=== PATIENT | female | born 1940 | race Caucasian/White ===

== ENCOUNTER 2017-08-06 13:02 | Outpatient (CLI) | payer MEDICARE, BC | END 2017-08-06 13:03 | disposition home or self-care (01) | LOC: BICMAMMO 13:02 | PROVIDERS: ATTEND Internal Medicine Geriatric Medicine | DX: Z12.31 Encounter for screening mammogram for malignant neoplasm of breast (principal); R92.1 Mammographic calcification found on diagnostic imaging of breast | CPT/HCPCS: 77063; 77067 ==

== ENCOUNTER 2019-04-12 12:54 | Outpatient (CLI) | payer MEDICARE, BC ==
--- NOTE | 2019-04-12 13:46 | MMO ---
Bilateral MAMMO Bilat Screen [facility]. CLINICAL HISTORY: Patient is 78 years old and is seen for screening. The patient has no family history of breast cancer. The patient has no personal history of cancer. VIEWS: The views performed were: bilateral craniocaudal with tomosynthesis and bilateral mediolateral oblique with tomosynthesis. FILMS COMPARED: The present examination has been compared to prior imaging studies performed at [facility] on 05/08/2016 and 08/06/2017, and at [facility] on 02/09/2014 and 02/23/2014. This study has been interpreted with the assistance of computer-aided detection. MAMMOGRAM FINDINGS: There are scattered fibroglandular densities. Finding 1: There is a stable nodule seen in the left breast. Finding 2: There are stable benign appearing calcifications seen in both breasts. There are no suspicious masses, suspicious calcifications, or new areas of architectural distortion. IMPRESSION: THERE IS NO MAMMOGRAPHIC EVIDENCE OF MALIGNANCY. A ROUTINE FOLLOW-UP MAMMOGRAM IN 1 YEAR IS RECOMMENDED. THE RESULTS OF THIS EXAM WERE SENT TO THE PATIENT. ACR BI-RADS Category 2 - Benign finding MAMMOGRAPHY NOTE: 1. A negative mammogram report should not delay a biopsy if a dominant of clinically suspicious mass is present. 2. Approximately 10% to 15% of breast cancers are not detected by mammography. 3. Adenosis and dense breasts may obscure an underlying neoplasm. Reported by: CHRISTIANO LEVINE MD Electonically Signed: [id number]
== END 2019-04-12 12:55 | disposition home or self-care (01) ==
LOC: BICMAMMO 12:54
PROVIDERS: ATTEND Family Medicine
DX: Z12.31 Encounter for screening mammogram for malignant neoplasm of breast (principal)
CPT/HCPCS: 77063; 77067

== ENCOUNTER 2020-10-11 13:01 | Outpatient (CLI) | payer MEDICARE | END 2020-10-11 13:02 | disposition home or self-care (01) | LOC: BICMAMMO 13:01 | PROVIDERS: ATTEND Family Medicine | DX: Z12.31 Encounter for screening mammogram for malignant neoplasm of breast (principal); Z13.820 Encounter for screening for osteoporosis; M85.89 Other specified disorders of bone density and structure, multiple sites | CPT/HCPCS: 77063; 77067; 77080 ==

== ENCOUNTER 2021-11-03 11:12 | Outpatient (CLI) | payer MEDICARE | END 2021-11-03 11:13 | disposition home or self-care (01) | LOC: BICMAMMO 11:12 | PROVIDERS: ATTEND Family Medicine | DX: Z12.31 Encounter for screening mammogram for malignant neoplasm of breast (principal) | CPT/HCPCS: 77063; 77067 ==

== ENCOUNTER 2021-11-07 14:01 | Outpatient (CLI) | payer MEDICARE | END 2021-11-07 14:02 | disposition home or self-care (01) | LOC: BICULT 14:01 | PROVIDERS: ATTEND Family Medicine | DX: R22.2 Localized swelling, mass and lump, trunk (principal); R93.5 Abnormal findings on diagnostic imaging of other abdominal regions, including retroperitoneum | CPT/HCPCS: 76705 ==

== ENCOUNTER 2022-03-19 12:39 | Outpatient (CLI) | payer MEDICARE | END 2022-03-19 12:40 | disposition home or self-care (01) | LOC: SCSMRI 12:39 | PROVIDERS: ATTEND Orthopaedic Surgery | DX: M16.11 Unilateral primary osteoarthritis, right hip (principal); S73.191A Other sprain of right hip, initial encounter; M25.751 Osteophyte, right hip ==

== ENCOUNTER 2022-04-07 09:26 | Outpatient (CLI) | payer MEDICARE ==
[~2022-04-07 09:26] MED LIST: Iopamidol 370 76% 100 ML VIAL ONE
== END 2022-04-07 09:27 | disposition home or self-care (01) ==
LOC: BICCT 09:26
PROVIDERS: ATTEND Orthopaedic Surgery
DX: M16.11 Unilateral primary osteoarthritis, right hip (principal); C78.6 Secondary malignant neoplasm of retroperitoneum and peritoneum
CPT/HCPCS: 36415; 74177; 82728; 83516; 83540; 83550; 84155; 84165; 85025; 85652; 86038; 86140; 86160; 86225; 86235; 86376; Q9967

== ENCOUNTER 2022-04-28 08:45 | Day surgery (SDC) | payer MEDICARE ==
[2022-04-24 14:06] VITALS: BMI 24.2
[2022-04-28 09:09] LABS: PTT 28.2 sec (22.9-36.1); Prothrombin Time 13.7 sec (12.0-14.7)
[2022-04-28 10:16] VITALS: BP 158/85; TEMP 97.6
== END 2022-04-28 13:55 | disposition home or self-care (01) ==
LOC: CT 08:45
PROVIDERS: ATTEND Obstetrics & Gynecology
PROC: 0DBW3ZX Excision of Peritoneum, Percutaneous Approach, Diagnostic (ICD-10-PCS; principal; 2022-04-28)
DX: C78.6 Secondary malignant neoplasm of retroperitoneum and peritoneum (principal); I10 Essential (primary) hypertension; I25.10 Atherosclerotic heart disease of native coronary artery without angina pectoris; E11.65 Type 2 diabetes mellitus with hyperglycemia; M62.89 Other specified disorders of muscle; Z79.4 Long term (current) use of insulin; Z79.82 Long term (current) use of aspirin; Z79.84 Long term (current) use of oral hypoglycemic drugs; Z79.899 Other long term (current) drug therapy; Z88.1 Allergy status to other antibiotic agents; Z88.8 Allergy status to other drugs, medicaments and biological substances
CPT/HCPCS: 74150; 77012; 85610; 85730; 88305; 88333; 88334; 88341; 88342

== ENCOUNTER 2022-05-12 11:04 | Outpatient (CLI) | payer MEDICARE ==
[2022-05-12 12:49] LABS: Hemoglobin 9.6 g/dL (12.0-15.5); Mean Corpuscular HGB CONC 30.9 g/dL (32.0-36.0); Mean Corpuscular Hemoglobin 25.5 pg (27.0-33.0); Mean Corpuscular Volume 82.7 fl (81.6-98.3); Mean Platelet Volume 9.7 fl (7.4-10.4); Platelet Count 371 10x3/uL (150-450); RBC Distribution Width 16.2 % (11.5-14.5); Red Blood Cell (RBC) Count 3.76 10x6/uL (3.90-5.03); White Blood Cell (WBC) Count 4.3 10x3/uL (3.5-10.5)
[2022-05-12 13:07] LABS: Anion Gap 15 mmol/L (10-20); BUN (Urea Nitrogen) 33 mg/dL (9.8-20.1); Calc. Creatinine Clearance 0 mL/min (70-130); Calcium 8.8 mg/dL (7.8-10.44); Carbon Dioxide 17 mmol/L (23-31); Chloride 109 mmol/L (98-107); Estimated GFR 38; Glucose 152 mg/dL (83-110); Potassium 4.1 mmol/L (3.5-5.1); Sodium 137 mmol/L (136-145)
[2022-05-12 13:11] LABS: MDiff Complete? YES
[2022-05-12 13:14] LABS: Band 2 % (5-11); Lymphocytes 33 % (21-51); Monocytes 8 % (0-10); Neutrophil 56 % (42-75); Reactive Lymphocytes 1 % (0-10)
[2022-05-12 13:16] LABS: Hypochromia SLIGHT = 6-15 cells (100X) (0-5/hpf); Ovalocytes SLIGHT = 2-5 cells (100X) (0-1/hpf)
[2022-05-12 13:17] LABS: Platelet Morphology Comment Appears Adequate
== END 2022-05-12 11:05 | disposition home or self-care (01) ==
LOC: LABBT 11:04
PROVIDERS: ATTEND Surgery
DX: Z01.818 Encounter for other preprocedural examination (principal); C56.9 Malignant neoplasm of unspecified ovary
CPT/HCPCS: 80048; 85025; 93005; 93010

== ENCOUNTER 2022-05-14 08:52 | Day surgery (SDC) | payer MEDICARE ==
[2022-05-12 14:04] VITALS: BMI 24.2
[2022-05-14] MEDS ORDERED: PROPOFOL 60 ML ONE (10:28)
[2022-05-14] MEDS ORDERED: Bupivacaine/Epinephrine 0.25% 30 ML VIAL ONE (11:06)
[2022-05-14] MEDS ORDERED: Lidocaine 1% PF 5 ML VIAL ONE (11:06)
[2022-05-14] MEDS ORDERED: Lidocaine 2% PF 5 ML VIAL ONE (11:07)
[2022-05-14] MEDS ORDERED: Sodium Chloride 0.9% 100 ML ONE (11:13)
[2022-05-14] MEDS ORDERED: CEFAZOLIN 2 GM VIAL ONE (11:13)
[2022-05-14] MEDS ORDERED: PROPOFOL 20 ML ONE (11:17)
[2022-05-14] MEDS ORDERED: Midazolam HCl 2 mg/2 ml Vial ONE (11:17)
[2022-05-14] MEDS ORDERED: fentaNYL PF 100 MCG/2 ML SYRINGE ONE (11:17)
== END 2022-05-14 13:08 | disposition home or self-care (01) ==
LOC: SDC 08:52
PROVIDERS: ATTEND Surgery
PROC: 0JH60WZ Insertion of Totally Implantable Vascular Access Device into Chest Subcutaneous Tissue and Fascia, Open Approach (ICD-10-PCS; principal; 2022-05-14)
PROC: 02HV33Z Insertion of Infusion Device into Superior Vena Cava, Percutaneous Approach (ICD-10-PCS; 2022-05-14)
DX: C56.9 Malignant neoplasm of unspecified ovary (principal); I10 Essential (primary) hypertension; E11.9 Type 2 diabetes mellitus without complications; K21.9 Gastro-esophageal reflux disease without esophagitis; M19.90 Unspecified osteoarthritis, unspecified site; E89.2 Postprocedural hypoparathyroidism; Z79.4 Long term (current) use of insulin; Z79.82 Long term (current) use of aspirin; Z79.84 Long term (current) use of oral hypoglycemic drugs; Z79.899 Other long term (current) drug therapy; Z88.1 Allergy status to other antibiotic agents; Z88.8 Allergy status to other drugs, medicaments and biological substances
CPT/HCPCS: 71045; C1788; J1642; J2001; J2250; J2704; J3490

== ENCOUNTER 2022-05-18 09:38 | Outpatient (CLI) | payer MEDICARE ==
[2022-05-18] MEDS ORDERED: Iopamidol 370 76% 100 ML VIAL ONE (10:29)
== END 2022-05-18 09:39 | disposition home or self-care (01) ==
LOC: CT 09:38
PROVIDERS: ATTEND Internal Medicine Hematology & Oncology
DX: C56.9 Malignant neoplasm of unspecified ovary (principal)
CPT/HCPCS: 71260; Q9967

== ENCOUNTER 2022-06-26 16:28 | Inpatient (IN) | payer MEDICARE ==
[~2022-06-26 16:28] MED LIST changes: -Iopamidol 370 76% 100 ML VIAL ONE; +Iopamidol-370 76% 500 ML MDV (1 ML CHARGE) ONE
[2022-06-26 16:59] LABS: #Lymphocytes 4.4 thou/uL (1.20-3.40); #Monocytes 1.2 thou/uL (0.11-0.59); #Neutrophils 5.3 thou/uL (1.40-6.50); %Basophils 0.2 % (0.0-1.0); %Eosinophils 0.3 % (0.0-10.0); %Lymphocytes 40.3 % (21.0-51.0); %Monocytes 10.6 % (0.0-10.0); %Neutrophils 48.6 % (42.0-75.0); Hemoglobin 10.7 g/dL (12.0-16.0); Mean Corpuscular HGB CONC 32.4 g/dL (32.0-36.0); Mean Corpuscular Hemoglobin 27.4 pg (27.0-31.0); Mean Corpuscular Volume 84.8 fl (78.0-98.0); Mean Platelet Volume 6.8 fL (7.4-10.4); Platelet Count 514 10x3/uL (130-400); RBC Distribution Width 18.8 % (11.5-14.5); Red Blood Cell (RBC) Count 3.92 mill/uL (4.20-5.40)
[2022-06-26 17:13] LABS: INR-International Normal Ratio 1.3; Prothrombin Time 17.1 sec (12.0-14.7)
[2022-06-26 17:41] LABS: ALT (SGPT) 10 U/L (8-55); AST (SGOT) 22 U/L (5-34); Albumin 3.6 g/dL (3.4-4.8); Alkaline Phosphatase 98 U/L (40-110); Anion Gap 23 mmol/L (10-20); BUN (Urea Nitrogen) 13 mg/dL (9.8-20.1); Bilirubin, Total 0.2 mg/dL (0.2-1.2); Calc. Creatinine Clearance 0 mL/min (70-130); Carbon Dioxide 17 mmol/L (23-31); Chloride 105 mmol/L (98-107); Estimated GFR 47; Globulin 3.6 g/dL (2.4-3.5); Glucose 135 mg/dL (83-110); Potassium 2.8 mmol/L (3.5-5.1); Protein, Total 7.2 g/dL (5.8-8.1); Sodium 142 mmol/L (136-145)
[2022-06-26 18:01] LABS: Acetaminophen Less than 10.0 mcg/mL (10.0-30.0); Alcohol Less than 10 mg/dL (Less than 10); Salicylate Less than 8.0 mg/dL (15.0-30.0)
[2022-06-26] MEDS ORDERED: Calcium Gluc 4.6 MEQ/10 ML (100 MG/ML) ONE (18:06)
[2022-06-26 18:37] LABS: Amphetamine Not Detected (NotDetected); Barbiturates Screen Not Detected (NotDetected); Benzodiazepine Screen Not Detected (NotDetected); Cocaine Metabolite Screen Not Detected (NotDetected); Methadone Not Detected (NotDetected); Methamphetamine Not Detected (NotDetected); Opiate Screen Not Detected (NotDetected); Oxycodone Screen Not Detected (NotDetected); Phencyclidine (PCP) Not Detected (NotDetected); THC/Cannabinoid Screen Not Detected (NotDetected); Tricyclic Screen Not Detected (NotDetected)
[2022-06-26 18:38] LABS: Bacteria/HPF None Seen HPF (None Seen); Bilirubin Negative (Negative); Blood, Urine Trace (Negative); Clarity Clear (Clear); Glucose, Urine (Dipstick) Normal (Negative); Ketone, Urine Negative (Negative); Leukocyte Negative Leu/uL (Negative); Nitrite Negative (Negative); Protein, Urine (Dipstick) 30 mg/dL (Neg-Trace); RBC/HPF 0-3 HPF (0-3); Specific Gravity, Urine 1.017 (1.002-1.036); Squamous Epithelial None Seen HPF (0-3); Urobilinogen Normal mg/dL (Less than 2); WBC/HPF 0-3 HPF (0-3); pH, Urine 5.5 (5.0-9.0)
[2022-06-26] MEDS ORDERED: Cefepime 2 GM VIAL ONE (18:46)
[2022-06-26] MEDS ORDERED: Magnesium 2 GM/50 ML BAG (IN WATER) ONE (18:46)
[2022-06-26] MEDS ORDERED: Potassium Chloride 40 MEQ in Sodium Chloride 0.9% 500 ML IVPB SCH (19:15)
[2022-06-26] MEDS ORDERED: Vancomycin 1 GM/200 ML (FROZEN) BAG ONE (19:26)
[2022-06-26 21:00] LABS: Lactic Acid 1.5 mmol/L (0.5-2.2)
[2022-06-27] MEDS ORDERED: Sodium Chloride 0.9% 1,000 ML IV SCH ×2 (00:45→01:51)
[2022-06-27] MEDS ORDERED: Cholecalciferol 1,000 UNITS (25 MCG) TAB PO SCH (01:45)
[2022-06-27] MEDS ORDERED: Potassium Bicarbonate/Cit Ac 20 MEQ TAB PO SCH ×2 (01:45→01:52)
[2022-06-27] MEDS ORDERED: Calcium Carbonate 500 MG ChewTAB PO SCH ×2 (01:45→01:49)
[2022-06-27] MEDS: Acetaminophen 325 MG TAB PO PRN (01:57)
[2022-06-27] MEDS: Ondansetron PF 4 MG/2 ML Vial IVP PRN (01:58)
[2022-06-27] MEDS ORDERED: Loperamide HCl 2 MG CAP PO PRN (02:03)
[2022-06-27] MEDS ORDERED: Acetaminophen/Codeine 30-300mg Tablet PO SCH (05:00)
[2022-06-27] MEDS ORDERED: Carvedilol 25 MG TAB PO SCH (05:30)
[2022-06-27 06:08] LABS: #Monocytes 1.3 thou/uL (0.11-0.59); #Neutrophils 11.5 thou/uL (1.40-6.50); %Basophils 0.1 % (0.0-1.0); %Eosinophils 0.1 % (0.0-10.0); %Lymphocytes 13.7 % (21.0-51.0); %Monocytes 8.5 % (0.0-10.0); %Neutrophils 77.5 % (42.0-75.0); Hemoglobin 10.9 g/dL (12.0-16.0); Mean Corpuscular HGB CONC 32.8 g/dL (32.0-36.0); Mean Corpuscular Hemoglobin 28.1 pg (27.0-31.0); Mean Corpuscular Volume 85.4 fl (78.0-98.0); Mean Platelet Volume 7.1 fL (7.4-10.4); Platelet Count 484 10x3/uL (130-400); RBC Distribution Width 19.3 % (11.5-14.5); Red Blood Cell (RBC) Count 3.89 mill/uL (4.20-5.40); White Blood Cell (WBC) Count 14.8 10x3/uL (4.8-10.8)
[2022-06-27 06:24] LABS: Phosphorus 3.2 mg/dL (2.3-4.7)
[2022-06-27 06:25] LABS: Anion Gap 19 mmol/L (10-20); BUN (Urea Nitrogen) 10 mg/dL (9.8-20.1); Calc. Creatinine Clearance 47 mL/min (70-130); Carbon Dioxide 20 mmol/L (23-31); Chloride 105 mmol/L (98-107); Estimated GFR 64; Glucose 156 mg/dL (83-110); Sodium 141 mmol/L (136-145)
[2022-06-27 06:31] LABS: Calcium 6.7 mg/dL (7.8-10.44)
[2022-06-27] MEDS ORDERED: Calcium Gluc 4.6 MEQ/10 ML (100 MG/ML) SLOW IVP ONE (06:40)
[2022-06-27] MEDS ORDERED: Electrolyte Replacement Protocol 1 EACH FS SCH (06:45)
[2022-06-27] MEDS ORDERED: Magnesium Sulfate In Water 4 GM in Premix Bag 1 BAG IVPB SCH (07:00)
[2022-06-27] MEDS ORDERED: CALCIUM GLUC 1 GM/NS 50 ML 1 GM in Premix Bag 1 BAG IVPB SCH ×2 (07:00→15:00)
[2022-06-27] MEDS ORDERED: Potassium Chloride 20 MEQ TAB PO SCH ×2 (08:00→14:30)
[2022-06-27] MEDS: Calcium Carbonate 500 MG ChewTAB PO SCH ×4 (09:03→21:09)
[2022-06-27] MEDS: Magnesium Oxide 400 MG TAB PO SCH ×2 (09:03→21:10)
[2022-06-27] MEDS ORDERED: Lorazepam 2 MG/ML VIAL ONE (09:50)
[2022-06-27] MEDS ORDERED: Lorazepam 2 MG/ML VIAL SLOW IVP PRN ×2 (09:57→18:06)
[2022-06-27] MEDS ORDERED: levETIRAcetam in NS 1,000 MG in Premix Bag 1 BAG IVPB SCH (09:58)
[2022-06-27] MEDS ORDERED: levETIRAcetam 500 MG/5 ML VIAL SLOW IVP SCH ×2 (10:15→10:45)
[2022-06-27] MEDS: Cefepime 2 GM in Sodium Chloride 0.9% 100 ML IVPB SCH ×2 (10:26→21:10)
[2022-06-27 11:06] LABS: Anion Gap 22 mmol/L (10-20); BUN (Urea Nitrogen) 11 mg/dL (9.8-20.1); Calc. Creatinine Clearance 39 mL/min (70-130); Carbon Dioxide 15 mmol/L (23-31); Chloride 106 mmol/L (98-107); Estimated GFR 51; Glucose 220 mg/dL (83-110); Magnesium 2.5 mg/dL (1.6-2.6); Potassium 3.2 mmol/L (3.5-5.1); Sodium 140 mmol/L (136-145)
[2022-06-27 11:23] LABS: Calcium 6.5 mg/dL (7.8-10.44)
[2022-06-27] MEDS ORDERED: VANCOMYCIN 1.25 GM/250 ML BAG 1.25 GM in Premix Bag 1 BAG IVPB SCH (12:30)
[2022-06-27 14:18] LABS: Anion Gap 17 mmol/L (10-20); BUN (Urea Nitrogen) 11 mg/dL (9.8-20.1); Calc. Creatinine Clearance 46 mL/min (70-130); Carbon Dioxide 20 mmol/L (23-31); Chloride 106 mmol/L (98-107); Estimated GFR 61; Glucose 236 mg/dL (83-110); Magnesium 2.3 mg/dL (1.6-2.6); Potassium 3.2 mmol/L (3.5-5.1); Sodium 140 mmol/L (136-145)
[2022-06-27 14:22] LABS: Calcium 6.8 mg/dL (7.8-10.44)
[2022-06-27] MEDS ORDERED: Calcium Chloride 13.6 MEQ in Sodium Chloride 0.9% 100 ML IVPB SCH (14:30)
[2022-06-27] MEDS ORDERED: Potassium Chloride 40 MEQ in Sodium Chloride 0.9% 250 ML 250 ML IVPB SCH (15:00)
[2022-06-27] MEDS ORDERED: Carvedilol 6.25 MG TAB PO SCH (21:00)
[2022-06-27] MEDS: levETIRAcetam 500 MG/5 ML VIAL SLOW IVP SCH (21:09)
[2022-06-27 22:21] LABS: Chloride 110 mmol/L (98-107); Potassium 3.8 mmol/L (3.5-5.1); Sodium 140 mmol/L (136-145)
[2022-06-27 22:22] LABS: Glucose 191 mg/dL (83-110)
[2022-06-27 22:24] LABS: Anion Gap 20 mmol/L (10-20); Carbon Dioxide 14 mmol/L (23-31)
[2022-06-27 22:26] LABS: Calc. Creatinine Clearance 47 mL/min (70-130); Calcium 6.9 mg/dL (7.8-10.44); Estimated GFR 64
[2022-06-27 22:27] LABS: BUN (Urea Nitrogen) 12 mg/dL (9.8-20.1)
[2022-06-27 22:28] LABS: Magnesium 1.8 mg/dL (1.6-2.6)
[2022-06-27] MEDS ORDERED: Calcium Gluc 4.6 MEQ/10 ML (100 MG/ML) SLOW IVP SCH (22:44)
[2022-06-27] MEDS ORDERED: Magnesium 2 GM/50 ML(in water) 2 GM in Premix Bag 1 BAG IVPB SCH (23:00)
[2022-06-28 06:04] LABS: #Lymphocytes 1.8 thou/uL (1.20-3.40); #Monocytes 1.3 thou/uL (0.11-0.59); #Neutrophils 10.9 thou/uL (1.40-6.50); %Basophils 0.2 % (0.0-1.0); %Eosinophils 0.3 % (0.0-10.0); %Lymphocytes 12.4 % (21.0-51.0); %Monocytes 9.3 % (0.0-10.0); %Neutrophils 77.7 % (42.0-75.0); Hemoglobin 10.2 g/dL (12.0-16.0); Mean Corpuscular HGB CONC 32.9 g/dL (32.0-36.0); Mean Corpuscular Hemoglobin 28.2 pg (27.0-31.0); Mean Corpuscular Volume 85.6 fl (78.0-98.0); Mean Platelet Volume 7.6 fL (7.4-10.4); Platelet Count 374 10x3/uL (130-400); RBC Distribution Width 19.6 % (11.5-14.5); Red Blood Cell (RBC) Count 3.63 mill/uL (4.20-5.40); White Blood Cell (WBC) Count 14.1 10x3/uL (4.8-10.8)
[2022-06-28 06:31] LABS: Anion Gap 17 mmol/L (10-20); BUN (Urea Nitrogen) 14 mg/dL (9.8-20.1); Calc. Creatinine Clearance 43 mL/min (70-130); Calcium 7.1 mg/dL (7.8-10.44); Carbon Dioxide 18 mmol/L (23-31); Chloride 111 mmol/L (98-107); Estimated GFR 57; Glucose 186 mg/dL (83-110); Magnesium 2.3 mg/dL (1.6-2.6); Potassium 3.6 mmol/L (3.5-5.1); Sodium 142 mmol/L (136-145)
[2022-06-28] MEDS: Calcium Carbonate 500 MG ChewTAB PO SCH ×4 (10:35→21:34)
[2022-06-28] MEDS: Magnesium Oxide 400 MG TAB PO SCH ×2 (10:36→21:34)
[2022-06-28] MEDS: Cefepime 2 GM in Sodium Chloride 0.9% 100 ML IVPB SCH ×2 (10:37→21:20)
[2022-06-28] MEDS: levETIRAcetam 500 MG/5 ML VIAL SLOW IVP SCH ×2 (10:38→21:20)
[2022-06-28] MEDS: Vancomycin 1 GM in Premix Bag 1 BAG IVPB SCH (12:32)
[2022-06-28] MEDS ORDERED: Metoprolol Tartrate 5 MG/5 ML VIAL IVP SCH (20:09)
[2022-06-29] MEDS ORDERED: Metoprolol Tartrate 5 MG/5 ML VIAL ONE ×2 (04:53→09:03)
[2022-06-29] MEDS ORDERED: Metoprolol Tartrate 5 MG/5 ML VIAL IVP SCH ×3 (05:00→20:00)
[2022-06-29 05:43] LABS: #Eosinphils 0.1 thou/uL (0.0-0.7); #Lymphocytes 1.4 thou/uL (1.20-3.40); #Monocytes 1.1 thou/uL (0.11-0.59); %Basophils 0.1 % (0.0-1.0); %Eosinophils 0.5 % (0.0-10.0); %Lymphocytes 9.5 % (21.0-51.0); %Monocytes 7.7 % (0.0-10.0); %Neutrophils 82.2 % (42.0-75.0); Hemoglobin 10.7 g/dL (12.0-16.0); Mean Corpuscular HGB CONC 31.3 g/dL (32.0-36.0); Mean Corpuscular Hemoglobin 27.7 pg (27.0-31.0); Mean Corpuscular Volume 88.5 fl (78.0-98.0); Mean Platelet Volume 7.5 fL (7.4-10.4); Platelet Count 415 10x3/uL (130-400); Red Blood Cell (RBC) Count 3.87 mill/uL (4.20-5.40); White Blood Cell (WBC) Count 14.5 10x3/uL (4.8-10.8)
[2022-06-29 06:07] LABS: Anion Gap 17 mmol/L (10-20); BUN (Urea Nitrogen) 29 mg/dL (9.8-20.1); Calc. Creatinine Clearance 43 mL/min (70-130); Calcium 7.3 mg/dL (7.8-10.44); Carbon Dioxide 19 mmol/L (23-31); Chloride 109 mmol/L (98-107); Estimated GFR 58; Glucose 262 mg/dL (83-110); Magnesium 1.9 mg/dL (1.6-2.6); Potassium 4.1 mmol/L (3.5-5.1); Sodium 141 mmol/L (136-145)
[2022-06-29] MEDS ORDERED: Magnesium 2 GM/50 ML(in water) 2 GM in Premix Bag 1 BAG IVPB SCH (08:00)
[2022-06-29] MEDS: Calcium Carbonate 500 MG ChewTAB PO SCH ×4 (08:56→20:39)
[2022-06-29] MEDS: Magnesium Oxide 400 MG TAB PO SCH ×2 (08:57→20:39)
[2022-06-29] MEDS ORDERED: Digoxin 0.5 MG/2 ML AMP SLOW IVP SCH (09:00)
[2022-06-29] MEDS ORDERED: Amiodarone 150 MG in Dextrose 5% in Water 100 ML IVPB SCH (09:15)
[2022-06-29 09:38] LABS: Lactic Acid 2.9 mmol/L (0.5-2.2)
[2022-06-29 09:55] LABS: Troponin I 0.872 ng/mL (< 0.028)
[2022-06-29 11:49] LABS: Vancomycin, Trough 4.6 ug/mL
[2022-06-29] MEDS: levETIRAcetam 500 MG/5 ML VIAL SLOW IVP SCH ×2 (12:17→20:37)
[2022-06-29] MEDS: Cefepime 2 GM in Sodium Chloride 0.9% 100 ML IVPB SCH ×2 (12:18→21:51)
[2022-06-29] MEDS: Lactated Ringer's 1,000 ML IV SCH (12:19)
[2022-06-29] MEDS: Vancomycin 1 GM in Premix Bag 1 BAG IVPB SCH (12:56)
[2022-06-29] MEDS: VANCOMYCIN 750 MG/250 ML BAG 750 MG in Sodium Chloride 0.9% 250 ML 250 ML IVPB SCH (13:43)
[2022-06-29] MEDS: Carvedilol 6.25 MG TAB PO SCH (17:44)
[2022-06-29] MEDS: Amiodarone 450 MG in Dextrose 5% in Water 250 ML IVPB SCH (17:56)
[2022-06-29] MEDS: Valsartan 80 MG TAB PO SCH (20:39)
[2022-06-30] MEDS: VANCOMYCIN 750 MG/250 ML BAG 750 MG in Sodium Chloride 0.9% 250 ML 250 ML IVPB SCH (00:50)
[2022-06-30 05:14] LABS: Calcium 7.6 mg/dL (7.8-10.44); Magnesium 2.6 mg/dL (1.6-2.6)
[2022-06-30] MEDS: Amiodarone 450 MG in Dextrose 5% in Water 250 ML IVPB SCH ×2 (07:21→20:29)
[2022-06-30] MEDS: Lactated Ringer's 1,000 ML IV SCH (08:11)
[2022-06-30] MEDS: levETIRAcetam 500 MG/5 ML VIAL SLOW IVP SCH ×2 (08:14→20:29)
[2022-06-30] MEDS ORDERED: Furosemide 40 MG/4 ML VIAL SLOW IVP SCH ×2 (08:15→16:00)
[2022-06-30] MEDS: Calcium Carbonate 500 MG ChewTAB PO SCH ×3 (09:05→17:22)
[2022-06-30] MEDS: Carvedilol 6.25 MG TAB PO SCH ×2 (09:05→17:22)
[2022-06-30] MEDS: Magnesium Oxide 400 MG TAB PO SCH ×2 (09:06→20:29)
[2022-06-30] MEDS: Valsartan 80 MG TAB PO SCH ×2 (09:06→20:29)
[2022-06-30] MEDS: cefTRIAXone\\ROCEPHIN 1 GM in Sodium Chloride 0.9% 100 ML IVPB SCH (09:14)
[2022-06-30] MEDS ORDERED: Cefepime 1 GM in Sodium Chloride 0.9% 100 ML IVPB SCH (10:00)
[2022-06-30] MEDS ORDERED: Vancomycin HCl 750 MG in Sodium Chloride 0.9% 250 ML 250 ML IVPB SCH (13:00)
[2022-07-01] MEDS: Calcium Carbonate 500 MG ChewTAB PO SCH ×5 (00:24→21:40)
[2022-07-01] MEDS: Furosemide 40 MG/4 ML VIAL SLOW IVP SCH ×2 (06:09→14:08)
[2022-07-01 06:33] LABS: Hemoglobin 10.9 g/dL (12.0-16.0); Mean Corpuscular HGB CONC 31.1 g/dL (32.0-36.0); Mean Corpuscular Hemoglobin 27.5 pg (27.0-31.0); Mean Corpuscular Volume 88.5 fl (78.0-98.0); Mean Platelet Volume 8.4 fL (7.4-10.4); Platelet Count 367 10x3/uL (130-400); RBC Distribution Width 19.7 % (11.5-14.5); Red Blood Cell (RBC) Count 3.97 mill/uL (4.20-5.40)
[2022-07-01 06:50] LABS: Anion Gap 16 mmol/L (10-20); BUN (Urea Nitrogen) 52 mg/dL (9.8-20.1); Calc. Creatinine Clearance 39 mL/min (70-130); Calcium 7.6 mg/dL (7.8-10.44); Carbon Dioxide 23 mmol/L (23-31); Chloride 103 mmol/L (98-107); Estimated GFR 48; Potassium 3.4 mmol/L (3.5-5.1); Sodium 139 mmol/L (136-145)
[2022-07-01 06:53] LABS: Glucose 464 mg/dL (83-110)
[2022-07-01 07:07] LABS: Anisocytosis SLIGHT = 6-15 cells (100X) (0-5/hpf); Lymphocytes 8 % (21-51); MDiff Complete? YES; Monocytes 3 % (0-10); Myelocyte 2 % (0-0); Neutrophil 87 % (42-75); Nucleated RBC 1 % (0); Platelet Morphology Comment Appears Adequate; Polychromasia SLIGHT = 2-3 cells (100X) (0-2/hpf)
[2022-07-01] MEDS ORDERED: Potassium Chloride 20 MEQ TAB PO SCH (08:00)
[2022-07-01] MEDS: Valsartan 80 MG TAB PO SCH ×2 (09:12→21:41)
[2022-07-01] MEDS: Carvedilol 6.25 MG TAB PO SCH ×2 (09:13→17:49)
[2022-07-01] MEDS: Magnesium Oxide 400 MG TAB PO SCH ×2 (09:15→21:41)
[2022-07-01] MEDS: levETIRAcetam 500 MG/5 ML VIAL SLOW IVP SCH ×2 (09:15→21:40)
[2022-07-01] MEDS: cefTRIAXone\\ROCEPHIN 1 GM in Sodium Chloride 0.9% 100 ML IVPB SCH (09:46)
[2022-07-01] MEDS: Amiodarone 450 MG in Dextrose 5% in Water 250 ML IVPB SCH (14:09)
[2022-07-01 15:07] LABS: Glucose 650 mg/dL (83-110)
[2022-07-01] MEDS: Insulin Regular 300 UNITS/3 ML VIAL SC PRN ×2 (15:09→18:12)
[2022-07-01] MEDS: Melatonin 3 MG TAB PO PRN (21:40)
[2022-07-01] MEDS: Insulin Glargine 30 UNITS/0.3 ML VIAL SC SCH (21:41)
[2022-07-01] MEDS: Ondansetron PF 4 MG/2 ML Vial IVP PRN (22:00)
[2022-07-02] MEDS: Furosemide 40 MG/4 ML VIAL SLOW IVP SCH ×2 (04:05→13:33)
[2022-07-02 05:02] LABS: Anion Gap 12 mmol/L (10-20); BUN (Urea Nitrogen) 43 mg/dL (9.8-20.1); Calc. Creatinine Clearance 44 mL/min (70-130); Calcium 7.8 mg/dL (7.8-10.44); Carbon Dioxide 32 mmol/L (23-31); Chloride 98 mmol/L (98-107); Estimated GFR 55; Glucose 157 mg/dL (83-110); Potassium 3.2 mmol/L (3.5-5.1); Sodium 139 mmol/L (136-145)
[2022-07-02] MEDS: Amiodarone 450 MG in Dextrose 5% in Water 250 ML IVPB SCH ×2 (06:08→22:27)
[2022-07-02] MEDS ORDERED: Potassium Chloride 20 MEQ TAB PO SCH (08:00)
[2022-07-02 09:06] LABS: #Eosinphils 0.1 thou/uL (0.0-0.7); #Lymphocytes 2.8 thou/uL (1.20-3.40); #Monocytes 1.1 thou/uL (0.11-0.59); #Neutrophils 11.6 thou/uL (1.40-6.50); %Eosinophils 0.9 % (0.0-10.0); %Monocytes 7.2 % (0.0-10.0); %Neutrophils 73.9 % (42.0-75.0); Hemoglobin 10.3 g/dL (12.0-16.0); Mean Corpuscular HGB CONC 31.4 g/dL (32.0-36.0); Mean Corpuscular Hemoglobin 27.7 pg (27.0-31.0); Mean Corpuscular Volume 88.2 fl (78.0-98.0); Mean Platelet Volume 8.8 fL (7.4-10.4); Platelet Count 262 10x3/uL (130-400); RBC Distribution Width 19.2 % (11.5-14.5); Red Blood Cell (RBC) Count 3.73 mill/uL (4.20-5.40); White Blood Cell (WBC) Count 15.7 10x3/uL (4.8-10.8)
[2022-07-02] MEDS: Carvedilol 6.25 MG TAB PO SCH ×2 (09:07→17:10)
[2022-07-02] MEDS: Calcium Carbonate 500 MG TAB PO SCH ×4 (09:07→20:44)
[2022-07-02] MEDS: Valsartan 80 MG TAB PO SCH ×2 (09:07→20:44)
[2022-07-02] MEDS: Magnesium Oxide 400 MG TAB PO SCH ×2 (09:07→20:43)
[2022-07-02] MEDS: levETIRAcetam 500 MG/5 ML VIAL SLOW IVP SCH ×2 (09:08→20:43)
[2022-07-02] MEDS: cefTRIAXone\\ROCEPHIN 1 GM in Sodium Chloride 0.9% 100 ML IVPB SCH (09:10)
[2022-07-02] MEDS: Acetaminophen 325 MG TAB PO PRN (10:06)
[2022-07-02] MEDS: Insulin Regular 300 UNITS/3 ML VIAL SC PRN ×2 (17:10→21:52)
[2022-07-02] MEDS: Insulin Glargine 30 UNITS/0.3 ML VIAL SC SCH (20:44)
[2022-07-03 04:39] LABS: #Basophils 0.1 thou/uL (0.0-0.2); #Eosinphils 0.1 thou/uL (0.0-0.7); #Lymphocytes 2.9 thou/uL (1.20-3.40); #Neutrophils 8.1 thou/uL (1.40-6.50); %Basophils 0.4 % (0.0-1.0); %Eosinophils 0.7 % (0.0-10.0); %Lymphocytes 23.9 % (21.0-51.0); %Monocytes 8.1 % (0.0-10.0); %Neutrophils 66.8 % (42.0-75.0); Hemoglobin 9.8 g/dL (12.0-16.0); Mean Corpuscular HGB CONC 32.4 g/dL (32.0-36.0); Mean Corpuscular Hemoglobin 28.6 pg (27.0-31.0); Mean Corpuscular Volume 88.3 fl (78.0-98.0); Mean Platelet Volume 8.8 fL (7.4-10.4); Platelet Count 255 10x3/uL (130-400); RBC Distribution Width 19.3 % (11.5-14.5); Red Blood Cell (RBC) Count 3.41 mill/uL (4.20-5.40); White Blood Cell (WBC) Count 12.2 10x3/uL (4.8-10.8)
[2022-07-03 04:59] LABS: Anion Gap 11 mmol/L (10-20); BUN (Urea Nitrogen) 39 mg/dL (9.8-20.1); Calc. Creatinine Clearance 43 mL/min (70-130); Calcium 8.7 mg/dL (7.8-10.44); Carbon Dioxide 36 mmol/L (23-31); Chloride 92 mmol/L (98-107); Estimated GFR 57; Glucose 168 mg/dL (83-110); Potassium 3.3 mmol/L (3.5-5.1); Sodium 136 mmol/L (136-145)
[2022-07-03] MEDS: Furosemide 40 MG/4 ML VIAL SLOW IVP SCH (05:53)
[2022-07-03] MEDS: Insulin Regular 300 UNITS/3 ML VIAL SC PRN ×3 (06:34→16:34)
[2022-07-03] MEDS ORDERED: Potassium Chloride 20 MEQ TAB PO SCH (08:00)
[2022-07-03] MEDS: Carvedilol 6.25 MG TAB PO SCH ×2 (09:00→16:34)
[2022-07-03] MEDS: Amiodarone 200 MG TAB PO SCH ×3 (09:01→20:28)
[2022-07-03] MEDS: Calcium Carbonate 500 MG TAB PO SCH ×4 (09:01→20:28)
[2022-07-03] MEDS: Furosemide 40 MG TAB PO SCH ×2 (09:01→13:03)
[2022-07-03] MEDS: Magnesium Oxide 400 MG TAB PO SCH ×2 (09:01→20:28)
[2022-07-03] MEDS: Polyethylene Glycol 3350 17 GM Packet PO SCH (09:01)
[2022-07-03] MEDS: levETIRAcetam 500 MG/5 ML VIAL SLOW IVP SCH ×2 (09:02→20:27)
[2022-07-03] MEDS: Valsartan 80 MG TAB PO SCH ×2 (09:02→20:28)
[2022-07-03] MEDS: cefTRIAXone\\ROCEPHIN 1 GM in Sodium Chloride 0.9% 100 ML IVPB SCH (09:02)
[2022-07-03] MEDS: Acetaminophen 325 MG TAB PO PRN ×2 (12:40→20:29)
[2022-07-03] MEDS: Insulin Glargine 30 UNITS/0.3 ML VIAL SC SCH (20:28)
[2022-07-03] MEDS: Melatonin 3 MG TAB PO PRN (20:29)
[2022-07-03] MEDS: Artificial Tear Sol 15 ML BOT EA EYE PRN (20:58)
[2022-07-04 06:28] LABS: #Eosinphils 0.1 thou/uL (0.0-0.7); #Lymphocytes 2.1 thou/uL (1.20-3.40); #Monocytes 0.9 thou/uL (0.11-0.59); #Neutrophils 6.5 thou/uL (1.40-6.50); %Basophils 0.4 % (0.0-1.0); %Eosinophils 0.8 % (0.0-10.0); %Lymphocytes 21.7 % (21.0-51.0); %Neutrophils 68.2 % (42.0-75.0); Hemoglobin 10.5 g/dL (12.0-16.0); Mean Corpuscular HGB CONC 31.5 g/dL (32.0-36.0); Mean Corpuscular Hemoglobin 28.3 pg (27.0-31.0); Mean Corpuscular Volume 89.8 fl (78.0-98.0); Mean Platelet Volume 8.7 fL (7.4-10.4); Platelet Count 252 10x3/uL (130-400); RBC Distribution Width 19.8 % (11.5-14.5); Red Blood Cell (RBC) Count 3.71 mill/uL (4.20-5.40); White Blood Cell (WBC) Count 9.5 10x3/uL (4.8-10.8)
[2022-07-04 06:50] LABS: Anion Gap 13 mmol/L (10-20); BUN (Urea Nitrogen) 32 mg/dL (9.8-20.1); Calc. Creatinine Clearance 41 mL/min (70-130); Calcium 9.4 mg/dL (7.8-10.44); Carbon Dioxide 34 mmol/L (23-31); Chloride 90 mmol/L (98-107); Estimated GFR 51; Glucose 151 mg/dL (83-110); Potassium 3.7 mmol/L (3.5-5.1); Sodium 133 mmol/L (136-145)
[2022-07-04] MEDS: Polyethylene Glycol 3350 17 GM Packet PO SCH (09:45)
[2022-07-04] MEDS: Magnesium Oxide 400 MG TAB PO SCH ×2 (09:47→21:24)
[2022-07-04] MEDS: levETIRAcetam 500 MG/5 ML VIAL SLOW IVP SCH (09:47)
[2022-07-04] MEDS: cefTRIAXone\\ROCEPHIN 1 GM in Sodium Chloride 0.9% 100 ML IVPB SCH (09:48)
[2022-07-04] MEDS: Furosemide 40 MG TAB PO SCH ×2 (09:48→14:19)
[2022-07-04] MEDS: Valsartan 80 MG TAB PO SCH ×2 (09:48→21:24)
[2022-07-04] MEDS: Carvedilol 6.25 MG TAB PO SCH ×2 (09:48→17:25)
[2022-07-04] MEDS: Amiodarone 200 MG TAB PO SCH ×3 (09:48→21:24)
[2022-07-04] MEDS: Calcium Carbonate 500 MG TAB PO SCH ×4 (09:48→21:26)
[2022-07-04] MEDS: Artificial Tear Sol 15 ML BOT EA EYE PRN ×2 (10:28→21:31)
[2022-07-04] MEDS: Insulin Regular 300 UNITS/3 ML VIAL SC PRN ×3 (13:23→21:29)
[2022-07-04] MEDS: Acetaminophen 325 MG TAB PO PRN ×2 (17:29→21:25)
[2022-07-04] MEDS: levETIRAcetam 500 mg/5 ml Oral Solution PO SCH (21:23)
[2022-07-04] MEDS: Insulin Glargine 30 UNITS/0.3 ML VIAL SC SCH (21:24)
[2022-07-04] MEDS: Cyanocobalamin (Vitamin B-12) 1,000 MCG TAB PO SCH (21:24)
[2022-07-04] MEDS: Melatonin 3 MG TAB PO PRN (21:24)
[2022-07-04] MEDS: Mirtazapine 15 MG Soltab PO SCH (22:50)
[2022-07-05 06:17] LABS: #Eosinphils 0.1 thou/uL (0.0-0.7); #Lymphocytes 1.9 thou/uL (1.20-3.40); #Neutrophils 4.9 thou/uL (1.40-6.50); %Basophils 0.3 % (0.0-1.0); %Eosinophils 0.8 % (0.0-10.0); %Monocytes 12.2 % (0.0-10.0); %Neutrophils 62.6 % (42.0-75.0); Hemoglobin 11.1 g/dL (12.0-16.0); Mean Corpuscular HGB CONC 32.3 g/dL (32.0-36.0); Mean Corpuscular Hemoglobin 28.7 pg (27.0-31.0); Mean Platelet Volume 8.6 fL (7.4-10.4); Platelet Count 231 10x3/uL (130-400); RBC Distribution Width 20.2 % (11.5-14.5); Red Blood Cell (RBC) Count 3.86 mill/uL (4.20-5.40); White Blood Cell (WBC) Count 7.8 10x3/uL (4.8-10.8)
[2022-07-05 08:32] LABS: Chloride 85 mmol/L (98-107); Potassium 3.2 mmol/L (3.5-5.1); Sodium 131 mmol/L (136-145)
[2022-07-05 08:33] LABS: Glucose 128 mg/dL (83-110)
[2022-07-05 08:34] LABS: Anion Gap 14 mmol/L (10-20); Carbon Dioxide 35 mmol/L (23-31)
[2022-07-05 08:36] LABS: Calc. Creatinine Clearance 42 mL/min (70-130); Estimated GFR 53
[2022-07-05 08:37] LABS: BUN (Urea Nitrogen) 24 mg/dL (9.8-20.1)
[2022-07-05 08:38] LABS: Magnesium 1.3 mg/dL (1.6-2.6)
[2022-07-05] MEDS ORDERED: Magnesium Sulfate In Water 4 GM in Premix Bag 1 BAG IVPB SCH (09:30)
[2022-07-05] MEDS ORDERED: Potassium Chloride 20 MEQ TAB PO SCH (09:30)
[2022-07-05] MEDS: levETIRAcetam 500 mg/5 ml Oral Solution PO SCH ×2 (10:42→21:49)
[2022-07-05] MEDS: Polyethylene Glycol 3350 17 GM Packet PO SCH (10:42)
[2022-07-05] MEDS: Carvedilol 6.25 MG TAB PO SCH ×2 (10:42→16:16)
[2022-07-05] MEDS: Valsartan 80 MG TAB PO SCH ×2 (10:42→21:50)
[2022-07-05] MEDS: Furosemide 40 MG TAB PO SCH ×2 (10:43→13:31)
[2022-07-05] MEDS: Magnesium Oxide 400 MG TAB PO SCH ×2 (10:43→21:50)
[2022-07-05] MEDS: Amiodarone 200 MG TAB PO SCH ×3 (10:43→21:50)
[2022-07-05] MEDS: Acetaminophen 325 MG TAB PO PRN (10:44)
[2022-07-05] MEDS: Calcium Carbonate 500 MG TAB PO SCH (10:45)
[2022-07-05] MEDS ORDERED: Lorazepam 2 MG/ML VIAL SLOW IVP PRN (11:13)
[2022-07-05] MEDS: cefTRIAXone\\ROCEPHIN 1 GM in Sodium Chloride 0.9% 100 ML IVPB SCH (13:30)
[2022-07-05] MEDS: Insulin Regular 300 UNITS/3 ML VIAL SC PRN (13:31)
[2022-07-05] MEDS: Acetaminophen 325 MG TAB PO SCH ×2 (16:20→21:50)
[2022-07-05] MEDS ORDERED: Acetaminophen 325 MG TAB PO PRN (18:45)
[2022-07-05] MEDS: Cyanocobalamin (Vitamin B-12) 1,000 MCG TAB PO SCH (21:49)
[2022-07-05] MEDS: Melatonin 3 MG TAB PO PRN (21:50)
[2022-07-05] MEDS: Mirtazapine 15 MG Soltab PO SCH (21:50)
[2022-07-05] MEDS: Senokot S 8.6-50 MG TAB PO SCH (21:50)
[2022-07-05] MEDS: Insulin Glargine 30 UNITS/0.3 ML VIAL SC SCH (21:51)
[2022-07-06 06:38] LABS: #Eosinphils 0.1 thou/uL (0.0-0.7); #Lymphocytes 1.6 thou/uL (1.20-3.40); #Monocytes 0.9 thou/uL (0.11-0.59); #Neutrophils 3.8 thou/uL (1.40-6.50); %Basophils 0.1 % (0.0-1.0); %Eosinophils 1.2 % (0.0-10.0); %Lymphocytes 24.6 % (21.0-51.0); %Monocytes 14.6 % (0.0-10.0); %Neutrophils 59.5 % (42.0-75.0); Hemoglobin 10.1 g/dL (12.0-16.0); Mean Corpuscular Volume 90.1 fl (78.0-98.0); Mean Platelet Volume 8.6 fL (7.4-10.4); Platelet Count 239 10x3/uL (130-400); RBC Distribution Width 20.2 % (11.5-14.5); White Blood Cell (WBC) Count 6.3 10x3/uL (4.8-10.8)
[2022-07-06 06:55] LABS: Phosphorus 4.3 mg/dL (2.3-4.7)
[2022-07-06 07:18] LABS: Anion Gap 12 mmol/L (10-20); BUN (Urea Nitrogen) 24 mg/dL (9.8-20.1); Calc. Creatinine Clearance 34 mL/min (70-130); Carbon Dioxide 34 mmol/L (23-31); Chloride 87 mmol/L (98-107); Estimated GFR 41; Glucose 146 mg/dL (83-110); Magnesium 2.2 mg/dL (1.6-2.6); Potassium 3.6 mmol/L (3.5-5.1); Sodium 129 mmol/L (136-145)
[2022-07-06] MEDS: Carvedilol 6.25 MG TAB PO SCH ×3 (08:10→21:13)
[2022-07-06] MEDS: Acetaminophen 325 MG TAB PO SCH ×4 (09:11→21:15)
[2022-07-06] MEDS: Amiodarone 200 MG TAB PO SCH ×4 (09:11→21:13)
[2022-07-06] MEDS: levETIRAcetam 500 mg/5 ml Oral Solution PO SCH ×3 (09:12→21:32)
[2022-07-06] MEDS: Magnesium Oxide 400 MG TAB PO SCH ×3 (09:13→21:10)
[2022-07-06] MEDS: Polyethylene Glycol 3350 17 GM Packet PO SCH (09:53)
[2022-07-06] MEDS: Senokot S 8.6-50 MG TAB PO SCH ×2 (09:53→21:15)
[2022-07-06] MEDS: Valsartan 80 MG TAB PO SCH ×2 (09:54→21:13)
[2022-07-06] MEDS: cefTRIAXone\\ROCEPHIN 1 GM in Sodium Chloride 0.9% 100 ML IVPB SCH (11:30)
[2022-07-06 14:26] VITALS: BMI 23.4
[2022-07-06] MEDS: traMADol HCl 50 MG TAB PO SCH (21:10)
[2022-07-06] MEDS: Cyanocobalamin (Vitamin B-12) 1,000 MCG TAB PO SCH (21:12)
[2022-07-06] MEDS: Mirtazapine 15 MG Soltab PO SCH (21:12)
[2022-07-06] MEDS: Melatonin 3 MG TAB PO PRN (21:19)
[2022-07-06] MEDS: Insulin Glargine 30 UNITS/0.3 ML VIAL SC SCH (21:21)
[2022-07-07] MEDS: Insulin Regular 300 UNITS/3 ML VIAL SC PRN (06:11)
[2022-07-07 06:54] LABS: #Eosinphils 0.1 thou/uL (0.0-0.7); #Lymphocytes 1.3 thou/uL (1.20-3.40); #Monocytes 0.8 thou/uL (0.11-0.59); %Basophils 0.8 % (0.0-1.0); %Eosinophils 1.6 % (0.0-10.0); %Lymphocytes 25.1 % (21.0-51.0); %Monocytes 14.4 % (0.0-10.0); Hemoglobin 9.5 g/dL (12.0-16.0); Mean Corpuscular Volume 90.4 fl (78.0-98.0); Mean Platelet Volume 8.4 fL (7.4-10.4); Platelet Count 214 10x3/uL (130-400); RBC Distribution Width 19.8 % (11.5-14.5); Red Blood Cell (RBC) Count 3.41 mill/uL (4.20-5.40); White Blood Cell (WBC) Count 5.2 10x3/uL (4.8-10.8)
[2022-07-07 07:07] LABS: Phosphorus 2.7 mg/dL (2.3-4.7)
[2022-07-07 07:08] LABS: Anion Gap 10 mmol/L (10-20); BUN (Urea Nitrogen) 21 mg/dL (9.8-20.1); Calc. Creatinine Clearance 44 mL/min (70-130); Calcium 7.4 mg/dL (7.8-10.44); Carbon Dioxide 30 mmol/L (23-31); Chloride 94 mmol/L (98-107); Estimated GFR 55; Glucose 175 mg/dL (83-110); Magnesium 1.7 mg/dL (1.6-2.6); Potassium 3.1 mmol/L (3.5-5.1); Sodium 131 mmol/L (136-145)
[2022-07-07] MEDS ORDERED: Potassium Chloride 20 MEQ TAB PO SCH ×2 (08:00→17:00)
[2022-07-07] MEDS ORDERED: Magnesium 2 GM/50 ML(in water) 2 GM in Premix Bag 1 BAG IVPB SCH (08:00)
[2022-07-07] MEDS: Valsartan 80 MG TAB PO SCH ×2 (10:33→21:23)
[2022-07-07] MEDS: traMADol HCl 50 MG TAB PO SCH ×3 (10:34→21:24)
[2022-07-07] MEDS: levETIRAcetam 500 mg/5 ml Oral Solution PO SCH ×2 (10:34→21:22)
[2022-07-07] MEDS: Magnesium Oxide 400 MG TAB PO SCH ×2 (10:34→21:25)
[2022-07-07] MEDS: Senokot S 8.6-50 MG TAB PO SCH ×2 (10:36→23:18)
[2022-07-07] MEDS: Polyethylene Glycol 3350 17 GM Packet PO SCH (10:36)
[2022-07-07] MEDS: Acetaminophen 325 MG TAB PO SCH ×3 (10:38→23:18)
[2022-07-07] MEDS: Amiodarone 200 MG TAB PO SCH (10:40)
[2022-07-07] MEDS: Carvedilol 6.25 MG TAB PO SCH (16:50)
[2022-07-07] MEDS ORDERED: Amiodarone 200 MG TAB PO SCH (21:00)
[2022-07-07] MEDS: Calcium Carbonate 500 MG ChewTAB PO SCH (21:22)
[2022-07-07] MEDS: Cyanocobalamin (Vitamin B-12) 1,000 MCG TAB PO SCH (21:22)
[2022-07-07] MEDS: Mirtazapine 15 MG Soltab PO SCH (21:23)
[2022-07-07] MEDS: Insulin Glargine 30 UNITS/0.3 ML VIAL SC SCH (21:25)
[2022-07-08 05:12] LABS: #Eosinphils 0.1 thou/uL (0.0-0.7); #Lymphocytes 1.4 thou/uL (1.20-3.40); #Monocytes 0.7 thou/uL (0.11-0.59); #Neutrophils 2.7 thou/uL (1.40-6.50); %Basophils 0.4 % (0.0-1.0); %Lymphocytes 28.6 % (21.0-51.0); %Monocytes 14.2 % (0.0-10.0); %Neutrophils 53.8 % (42.0-75.0); Mean Corpuscular HGB CONC 31.9 g/dL (32.0-36.0); Mean Corpuscular Hemoglobin 28.8 pg (27.0-31.0); Mean Corpuscular Volume 90.1 fl (78.0-98.0); Mean Platelet Volume 8.2 fL (7.4-10.4); Platelet Count 226 10x3/uL (130-400); RBC Distribution Width 19.8 % (11.5-14.5); Red Blood Cell (RBC) Count 3.47 mill/uL (4.20-5.40)
[2022-07-08 05:43] LABS: Anion Gap 11 mmol/L (10-20); BUN (Urea Nitrogen) 22 mg/dL (9.8-20.1); Calc. Creatinine Clearance 37 mL/min (70-130); Calcium 8.5 mg/dL (7.8-10.44); Carbon Dioxide 31 mmol/L (23-31); Chloride 93 mmol/L (98-107); Estimated GFR 45; Glucose 145 mg/dL (83-110); Magnesium 2.3 mg/dL (1.6-2.6); Potassium 4.1 mmol/L (3.5-5.1); Sodium 131 mmol/L (136-145)
[2022-07-08] MEDS: traMADol HCl 50 MG TAB PO SCH ×3 (09:04→21:26)
[2022-07-08] MEDS: Polyethylene Glycol 3350 17 GM Packet PO SCH ×2 (09:04→09:22)
[2022-07-08] MEDS: levETIRAcetam 500 mg/5 ml Oral Solution PO SCH ×2 (09:04→21:24)
[2022-07-08] MEDS: Valsartan 80 MG TAB PO SCH ×2 (09:06→21:25)
[2022-07-08] MEDS: Magnesium Oxide 400 MG TAB PO SCH ×2 (09:06→21:25)
[2022-07-08] MEDS: Acetaminophen 325 MG TAB PO SCH ×3 (09:06→21:26)
[2022-07-08] MEDS: Carvedilol 6.25 MG TAB PO SCH ×2 (09:07→17:20)
[2022-07-08] MEDS: Calcium Carbonate 500 MG ChewTAB PO SCH ×2 (09:08→21:25)
[2022-07-08] MEDS: Amiodarone 200 MG TAB PO SCH (09:22)
[2022-07-08] MEDS: Senokot S 8.6-50 MG TAB PO SCH ×2 (09:22→21:27)
[2022-07-08] MEDS: Insulin Regular 300 UNITS/3 ML VIAL SC PRN (17:20)
[2022-07-08] MEDS: Insulin Glargine 30 UNITS/0.3 ML VIAL SC SCH (21:11)
[2022-07-08] MEDS: Cyanocobalamin (Vitamin B-12) 1,000 MCG TAB PO SCH (21:25)
[2022-07-08] MEDS: Mirtazapine 15 MG Soltab PO SCH (21:25)
[2022-07-08] MEDS: Artificial Tear Sol 15 ML BOT EA EYE PRN (21:37)
[2022-07-09 05:56] LABS: #Eosinphils 0.1 thou/uL (0.0-0.7); #Lymphocytes 1.6 thou/uL (1.20-3.40); #Monocytes 0.7 thou/uL (0.11-0.59); #Neutrophils 2.4 thou/uL (1.40-6.50); %Basophils 0.5 % (0.0-1.0); %Eosinophils 2.8 % (0.0-10.0); %Lymphocytes 32.6 % (21.0-51.0); %Monocytes 14.8 % (0.0-10.0); %Neutrophils 49.4 % (42.0-75.0); Hemoglobin 10.7 g/dL (12.0-16.0); Mean Corpuscular HGB CONC 32.3 g/dL (32.0-36.0); Mean Corpuscular Hemoglobin 29.7 pg (27.0-31.0); Mean Corpuscular Volume 91.8 fl (78.0-98.0); Mean Platelet Volume 7.7 fL (7.4-10.4); Platelet Count 273 10x3/uL (130-400); RBC Distribution Width 19.7 % (11.5-14.5); Red Blood Cell (RBC) Count 3.61 mill/uL (4.20-5.40); White Blood Cell (WBC) Count 4.8 10x3/uL (4.8-10.8)
[2022-07-09 06:21] LABS: Anion Gap 10 mmol/L (10-20); BUN (Urea Nitrogen) 19 mg/dL (9.8-20.1); Calc. Creatinine Clearance 39 mL/min (70-130); Calcium 8.7 mg/dL (7.8-10.44); Carbon Dioxide 29 mmol/L (23-31); Chloride 93 mmol/L (98-107); Estimated GFR 49; Glucose 162 mg/dL (83-110); Potassium 4.3 mmol/L (3.5-5.1); Sodium 128 mmol/L (136-145)
[2022-07-09] MEDS: Carvedilol 6.25 MG TAB PO SCH ×2 (10:19→18:26)
[2022-07-09] MEDS: Senokot S 8.6-50 MG TAB PO SCH ×2 (10:19→21:47)
[2022-07-09] MEDS: Valsartan 80 MG TAB PO SCH ×2 (10:19→21:46)
[2022-07-09] MEDS: traMADol HCl 50 MG TAB PO SCH ×3 (10:19→21:47)
[2022-07-09] MEDS: levETIRAcetam 500 mg/5 ml Oral Solution PO SCH ×2 (10:20→21:45)
[2022-07-09] MEDS: Acetaminophen 325 MG TAB PO SCH ×3 (10:21→21:47)
[2022-07-09] MEDS: Amiodarone 200 MG TAB PO SCH (10:21)
[2022-07-09] MEDS: Polyethylene Glycol 3350 17 GM Packet PO SCH (10:22)
[2022-07-09] MEDS: Magnesium Oxide 400 MG TAB PO SCH ×2 (10:22→21:47)
[2022-07-09] MEDS: Calcium Carbonate 500 MG ChewTAB PO SCH ×2 (10:23→21:45)
[2022-07-09] MEDS: Insulin Regular 300 UNITS/3 ML VIAL SC PRN ×2 (13:06→16:28)
[2022-07-09] MEDS: Melatonin 3 MG TAB PO PRN (21:45)
[2022-07-09] MEDS: Mirtazapine 15 MG Soltab PO SCH (21:46)
[2022-07-09] MEDS: Cyanocobalamin (Vitamin B-12) 1,000 MCG TAB PO SCH (21:48)
[2022-07-09] MEDS: Insulin Glargine 30 UNITS/0.3 ML VIAL SC SCH (21:50)
[2022-07-10 05:51] LABS: #Eosinphils 0.1 thou/uL (0.0-0.7); #Lymphocytes 1.5 thou/uL (1.20-3.40); #Monocytes 0.7 thou/uL (0.11-0.59); #Neutrophils 2.7 thou/uL (1.40-6.50); %Basophils 0.4 % (0.0-1.0); %Eosinophils 2.6 % (0.0-10.0); %Lymphocytes 29.3 % (21.0-51.0); %Monocytes 14.4 % (0.0-10.0); %Neutrophils 53.3 % (42.0-75.0); Mean Corpuscular HGB CONC 30.7 g/dL (32.0-36.0); Mean Corpuscular Hemoglobin 28.1 pg (27.0-31.0); Mean Corpuscular Volume 91.5 fl (78.0-98.0); Mean Platelet Volume 7.6 fL (7.4-10.4); Platelet Count 301 10x3/uL (130-400); RBC Distribution Width 19.5 % (11.5-14.5); Red Blood Cell (RBC) Count 3.57 mill/uL (4.20-5.40); White Blood Cell (WBC) Count 5.1 10x3/uL (4.8-10.8)
[2022-07-10 06:04] LABS: Anion Gap 10 mmol/L (10-20); BUN (Urea Nitrogen) 20 mg/dL (9.8-20.1); Calc. Creatinine Clearance 41 mL/min (70-130); Calcium 8.5 mg/dL (7.8-10.44); Carbon Dioxide 30 mmol/L (23-31); Chloride 93 mmol/L (98-107); Estimated GFR 51; Glucose 167 mg/dL (83-110); Potassium 3.8 mmol/L (3.5-5.1); Sodium 129 mmol/L (136-145)
[2022-07-10] MEDS: Polyethylene Glycol 3350 17 GM Packet PO SCH (09:46)
[2022-07-10] MEDS: levETIRAcetam 500 mg/5 ml Oral Solution PO SCH ×2 (09:46→21:30)
[2022-07-10] MEDS: Calcium Carbonate 500 MG ChewTAB PO SCH ×2 (09:47→21:31)
[2022-07-10] MEDS: Acetaminophen 325 MG TAB PO SCH ×3 (09:47→21:32)
[2022-07-10] MEDS: Valsartan 80 MG TAB PO SCH ×2 (09:47→22:35)
[2022-07-10] MEDS: Magnesium Oxide 400 MG TAB PO SCH ×2 (09:48→21:32)
[2022-07-10] MEDS: Carvedilol 6.25 MG TAB PO SCH ×2 (09:48→17:02)
[2022-07-10] MEDS: Amiodarone 200 MG TAB PO SCH (09:48)
[2022-07-10] MEDS: Senokot S 8.6-50 MG TAB PO SCH ×2 (09:49→21:31)
[2022-07-10] MEDS: traMADol HCl 50 MG TAB PO SCH ×3 (09:53→21:31)
[2022-07-10] MEDS: Cyanocobalamin (Vitamin B-12) 1,000 MCG TAB PO SCH (21:32)
[2022-07-10] MEDS: Mirtazapine 15 MG Soltab PO SCH (21:33)
[2022-07-10] MEDS: Insulin Glargine 30 UNITS/0.3 ML VIAL SC SCH (21:41)
[2022-07-11 05:34] LABS: Hemoglobin 9.8 g/dL (12.0-16.0); Mean Corpuscular HGB CONC 31.7 g/dL (32.0-36.0); Mean Corpuscular Hemoglobin 28.8 pg (27.0-31.0); Mean Corpuscular Volume 90.9 fl (78.0-98.0); Mean Platelet Volume 7.5 fL (7.4-10.4); Platelet Count 310 10x3/uL (130-400); RBC Distribution Width 19.4 % (11.5-14.5); Red Blood Cell (RBC) Count 3.41 mill/uL (4.20-5.40); White Blood Cell (WBC) Count 4.4 10x3/uL (4.8-10.8)
[2022-07-11 05:53] LABS: Anion Gap 12 mmol/L (10-20); BUN (Urea Nitrogen) 22 mg/dL (9.8-20.1); Calc. Creatinine Clearance 41 mL/min (70-130); Carbon Dioxide 28 mmol/L (23-31); Chloride 93 mmol/L (98-107); Estimated GFR 50; Glucose 112 mg/dL (83-110); Potassium 3.7 mmol/L (3.5-5.1); Sodium 129 mmol/L (136-145)
[2022-07-11 06:08] LABS: Band 1 % (5-11); Eosinophils 3 % (0-10); Lymphocytes 33 % (21-51); MDiff Complete? YES; Monocytes 17 % (0-10); Neutrophil 46 % (42-75)
[2022-07-11] MEDS: Calcium Carbonate 500 MG ChewTAB PO SCH ×2 (09:11→21:28)
[2022-07-11] MEDS: traMADol HCl 50 MG TAB PO SCH ×3 (09:11→21:30)
[2022-07-11] MEDS: levETIRAcetam 500 mg/5 ml Oral Solution PO SCH ×2 (09:11→21:27)
[2022-07-11] MEDS: Valsartan 80 MG TAB PO SCH ×2 (09:12→21:26)
[2022-07-11] MEDS: Magnesium Oxide 400 MG TAB PO SCH ×2 (09:12→21:30)
[2022-07-11] MEDS: Acetaminophen 325 MG TAB PO SCH ×3 (09:12→21:30)
[2022-07-11] MEDS: Carvedilol 6.25 MG TAB PO SCH ×2 (09:12→18:47)
[2022-07-11] MEDS: Senokot S 8.6-50 MG TAB PO SCH ×2 (09:13→21:30)
[2022-07-11] MEDS: Polyethylene Glycol 3350 17 GM Packet PO SCH (09:13)
[2022-07-11] MEDS: Amiodarone 200 MG TAB PO SCH (09:13)
[2022-07-11] MEDS: Lansoprazole 15 MG/5 ML (BATCHED)UDCUP PO SCH (09:18)
[2022-07-11 18:36] LABS: Anion Gap 12 mmol/L (10-20); BUN (Urea Nitrogen) 23 mg/dL (9.8-20.1); Calc. Creatinine Clearance 37 mL/min (70-130); Calcium 8.7 mg/dL (7.8-10.44); Carbon Dioxide 28 mmol/L (23-31); Chloride 95 mmol/L (98-107); Estimated GFR 46; Glucose 169 mg/dL (83-110); Magnesium 1.8 mg/dL (1.6-2.6); Potassium 3.7 mmol/L (3.5-5.1); Sodium 131 mmol/L (136-145)
[2022-07-11] MEDS: Mirtazapine 15 MG Soltab PO SCH (21:27)
[2022-07-11] MEDS: Insulin Glargine 30 UNITS/0.3 ML VIAL SC SCH (21:29)
[2022-07-11] MEDS: Cyanocobalamin (Vitamin B-12) 1,000 MCG TAB PO SCH (21:30)
[2022-07-11] MEDS ORDERED: Magnesium 2 GM/50 ML(in water) 2 GM in Premix Bag 1 BAG IVPB SCH (22:00)
[2022-07-12 05:35] LABS: #Eosinphils 0.1 thou/uL (0.0-0.7); #Lymphocytes 1.8 thou/uL (1.20-3.40); #Monocytes 0.6 thou/uL (0.11-0.59); #Neutrophils 1.4 thou/uL (1.40-6.50); %Basophils 0.9 % (0.0-1.0); %Eosinophils 2.8 % (0.0-10.0); %Lymphocytes 46.1 % (21.0-51.0); %Monocytes 14.7 % (0.0-10.0); %Neutrophils 35.4 % (42.0-75.0); Hemoglobin 9.3 g/dL (12.0-16.0); Mean Corpuscular HGB CONC 31.7 g/dL (32.0-36.0); Mean Corpuscular Hemoglobin 28.7 pg (27.0-31.0); Mean Corpuscular Volume 90.8 fl (78.0-98.0); Mean Platelet Volume 7.4 fL (7.4-10.4); Platelet Count 305 10x3/uL (130-400); RBC Distribution Width 19.5 % (11.5-14.5); Red Blood Cell (RBC) Count 3.23 mill/uL (4.20-5.40); White Blood Cell (WBC) Count 3.9 10x3/uL (4.8-10.8)
[2022-07-12 06:07] LABS: Anion Gap 11 mmol/L (10-20); BUN (Urea Nitrogen) 21 mg/dL (9.8-20.1); Calc. Creatinine Clearance 42 mL/min (70-130); Calcium 8.6 mg/dL (7.8-10.44); Carbon Dioxide 28 mmol/L (23-31); Chloride 96 mmol/L (98-107); Estimated GFR 53; Glucose 107 mg/dL (83-110); Magnesium 2.3 mg/dL (1.6-2.6); Potassium 3.7 mmol/L (3.5-5.1); Sodium 131 mmol/L (136-145)
[2022-07-12] MEDS: Calcium Carbonate 500 MG ChewTAB PO SCH ×2 (09:50→21:01)
[2022-07-12] MEDS: Senokot S 8.6-50 MG TAB PO SCH ×2 (09:50→21:03)
[2022-07-12] MEDS: Acetaminophen 325 MG TAB PO SCH ×3 (09:52→21:01)
[2022-07-12] MEDS: Amiodarone 200 MG TAB PO SCH (09:52)
[2022-07-12] MEDS: Carvedilol 6.25 MG TAB PO SCH ×2 (09:52→16:05)
[2022-07-12] MEDS: Megestrol Acetate 800 MG/20 ML UDCUP PO SCH (09:54)
[2022-07-12] MEDS: Magnesium Oxide 400 MG TAB PO SCH ×2 (09:54→21:02)
[2022-07-12] MEDS: Valsartan 80 MG TAB PO SCH ×2 (09:54→21:03)
[2022-07-12] MEDS: traMADol HCl 50 MG TAB PO SCH ×3 (09:54→21:03)
[2022-07-12] MEDS: Polyethylene Glycol 3350 17 GM Packet PO SCH (09:55)
[2022-07-12] MEDS: Lansoprazole 15 MG/5 ML (BATCHED)UDCUP PO SCH (11:42)
[2022-07-12] MEDS: levETIRAcetam 500 mg/5 ml Oral Solution PO SCH ×2 (11:42→21:01)
[2022-07-12] MEDS: Insulin Regular 300 UNITS/3 ML VIAL SC PRN (17:14)
[2022-07-12] MEDS: Cyanocobalamin (Vitamin B-12) 1,000 MCG TAB PO SCH (21:01)
[2022-07-12] MEDS: Mirtazapine 15 MG Soltab PO SCH (21:03)
[2022-07-12] MEDS: Insulin Glargine 30 UNITS/0.3 ML VIAL SC SCH (21:04)
[2022-07-12] MEDS: Melatonin 3 MG TAB PO PRN (21:06)
[2022-07-13 06:14] LABS: #Eosinphils 0.1 thou/uL (0.0-0.7); #Monocytes 0.6 thou/uL (0.11-0.59); #Neutrophils 2.2 thou/uL (1.40-6.50); %Basophils 0.6 % (0.0-1.0); %Lymphocytes 40.5 % (21.0-51.0); %Monocytes 12.6 % (0.0-10.0); %Neutrophils 44.3 % (42.0-75.0); Hemoglobin 9.7 g/dL (12.0-16.0); Mean Corpuscular HGB CONC 32.5 g/dL (32.0-36.0); Mean Corpuscular Hemoglobin 29.7 pg (27.0-31.0); Mean Corpuscular Volume 91.3 fl (78.0-98.0); Mean Platelet Volume 7.2 fL (7.4-10.4); Platelet Count 325 10x3/uL (130-400); RBC Distribution Width 19.2 % (11.5-14.5); Red Blood Cell (RBC) Count 3.26 mill/uL (4.20-5.40); White Blood Cell (WBC) Count 5.1 10x3/uL (4.8-10.8)
[2022-07-13 06:30] LABS: Calcium 8.5 mg/dL (7.8-10.44); Chloride 96 mmol/L (98-107); Sodium 131 mmol/L (136-145)
[2022-07-13 06:31] LABS: Glucose 129 mg/dL (83-110)
[2022-07-13 06:32] LABS: Anion Gap 8 mmol/L (10-20); Carbon Dioxide 31 mmol/L (23-31)
[2022-07-13 06:34] LABS: Calc. Creatinine Clearance 40 mL/min (70-130); Estimated GFR 50
[2022-07-13 06:35] LABS: BUN (Urea Nitrogen) 24 mg/dL (9.8-20.1)
[2022-07-13] MEDS ORDERED: Polyethylene Glycol 3350 17 GM Packet PO PRN (07:57)
[2022-07-13] MEDS: traMADol HCl 50 MG TAB PO SCH ×3 (09:01→20:50)
[2022-07-13] MEDS: Valsartan 80 MG TAB PO SCH ×2 (09:01→20:53)
[2022-07-13] MEDS: levETIRAcetam 500 mg/5 ml Oral Solution PO SCH ×2 (09:01→20:51)
[2022-07-13] MEDS: Calcium Carbonate 500 MG ChewTAB PO SCH ×2 (09:02→20:49)
[2022-07-13] MEDS: Acetaminophen 325 MG TAB PO SCH ×3 (09:02→20:49)
[2022-07-13] MEDS: Megestrol Acetate 800 MG/20 ML UDCUP PO SCH (09:03)
[2022-07-13] MEDS: Amiodarone 200 MG TAB PO SCH (09:03)
[2022-07-13] MEDS: Magnesium Oxide 400 MG TAB PO SCH ×2 (09:03→20:50)
[2022-07-13] MEDS: Carvedilol 6.25 MG TAB PO SCH ×3 (09:03→17:42)
[2022-07-13] MEDS: Senokot S 8.6-50 MG TAB PO SCH ×2 (09:04→20:50)
[2022-07-13] MEDS: Insulin Regular 300 UNITS/3 ML VIAL SC PRN (10:41)
[2022-07-13] MEDS: Lansoprazole 15 MG/5 ML (BATCHED)UDCUP PO SCH (14:18)
[2022-07-13] MEDS: Sodium Chloride 1 GM TAB PO SCH ×2 (15:22→20:50)
[2022-07-13] MEDS: Mirtazapine 15 MG Soltab PO SCH (20:50)
[2022-07-13] MEDS: Cyanocobalamin (Vitamin B-12) 1,000 MCG TAB PO SCH (20:50)
[2022-07-13] MEDS: Insulin Glargine 30 UNITS/0.3 ML VIAL SC SCH (20:52)
[2022-07-13] MEDS: Melatonin 3 MG TAB PO PRN (21:00)
[2022-07-14 05:45] LABS: #Eosinphils 0.1 thou/uL (0.0-0.7); #Monocytes 0.6 thou/uL (0.11-0.59); #Neutrophils 1.9 thou/uL (1.40-6.50); %Basophils 0.5 % (0.0-1.0); %Eosinophils 1.9 % (0.0-10.0); %Lymphocytes 43.9 % (21.0-51.0); %Monocytes 12.7 % (0.0-10.0); Hemoglobin 9.5 g/dL (12.0-16.0); Mean Corpuscular HGB CONC 30.7 g/dL (32.0-36.0); Mean Corpuscular Hemoglobin 28.4 pg (27.0-31.0); Mean Corpuscular Volume 92.5 fl (78.0-98.0); Mean Platelet Volume 6.8 fL (7.4-10.4); Platelet Count 347 10x3/uL (130-400); RBC Distribution Width 19.7 % (11.5-14.5); Red Blood Cell (RBC) Count 3.35 mill/uL (4.20-5.40); White Blood Cell (WBC) Count 4.5 10x3/uL (4.8-10.8)
[2022-07-14 06:04] LABS: Anion Gap 11 mmol/L (10-20); BUN (Urea Nitrogen) 24 mg/dL (9.8-20.1); Calc. Creatinine Clearance 41 mL/min (70-130); Calcium 8.3 mg/dL (7.8-10.44); Carbon Dioxide 27 mmol/L (23-31); Chloride 99 mmol/L (98-107); Estimated GFR 51; Glucose 125 mg/dL (83-110); Potassium 4.1 mmol/L (3.5-5.1); Sodium 133 mmol/L (136-145)
[2022-07-14] MEDS: levETIRAcetam 500 mg/5 ml Oral Solution PO SCH (08:44)
[2022-07-14] MEDS: Megestrol Acetate 800 MG/20 ML UDCUP PO SCH (08:44)
[2022-07-14] MEDS: Acetaminophen 325 MG TAB PO SCH ×2 (08:45→16:16)
[2022-07-14] MEDS: traMADol HCl 50 MG TAB PO SCH ×2 (08:46→16:16)
[2022-07-14] MEDS: Calcium Carbonate 500 MG ChewTAB PO SCH (08:47)
[2022-07-14] MEDS: Amiodarone 200 MG TAB PO SCH (08:47)
[2022-07-14] MEDS: Magnesium Oxide 400 MG TAB PO SCH (08:47)
[2022-07-14] MEDS: Valsartan 80 MG TAB PO SCH (09:38)
[2022-07-14] MEDS: Carvedilol 6.25 MG TAB PO SCH (09:38)
[2022-07-14] MEDS: Senokot S 8.6-50 MG TAB PO SCH (09:38)
[2022-07-14] MEDS: Insulin Regular 300 UNITS/3 ML VIAL SC PRN (10:41)
[2022-07-14] MEDS: Sodium Chloride 1 GM TAB PO SCH ×2 (10:41→16:17)
[2022-07-14] MEDS: Lansoprazole 15 MG/5 ML (BATCHED)UDCUP PO SCH (10:41)
[2022-07-14 15:57] VITALS: BP 111/62; TEMP 98.3
== END 2022-07-14 16:49 | DRG 871 ==
LOC: ERS 16:28 → NEURO 20:16 → OBSVTOIN 06-27 09:01 → CCU 06-29 11:26 → IMCU/EMU 06-30 19:24 → NEURO 07-03 23:56 → MSONC 07-07 22:34
PROVIDERS: ADMIT Emergency Medicine; ATTEND Emergency Medicine
PROC: 3E03329 Introduction of Other Anti-infective into Peripheral Vein, Percutaneous Approach (ICD-10-PCS; principal; 2022-06-27)
PROC: 0T9B70Z Drainage of Bladder with Drainage Device, Via Natural or Artificial Opening (ICD-10-PCS; 2022-07-12)
DX: A41.9 Sepsis, unspecified organism (principal); G93.41 Metabolic encephalopathy; J96.01 Acute respiratory failure with hypoxia; I50.23 Acute on chronic systolic (congestive) heart failure; C56.9 Malignant neoplasm of unspecified ovary; C78.6 Secondary malignant neoplasm of retroperitoneum and peritoneum; E87.20 Acidosis, unspecified; I51.81 Takotsubo syndrome; R64 Cachexia; N39.0 Urinary tract infection, site not specified; I13.0 Hypertensive heart and chronic kidney disease with heart failure and stage 1 through stage 4 chronic kidney disease, or unspecified chronic kidney disease; E22.2 Syndrome of inappropriate secretion of antidiuretic hormone; R65.20 Severe sepsis without septic shock; Z66 Do not resuscitate; G40.909 Epilepsy, unspecified, not intractable, without status epilepticus; E11.22 Type 2 diabetes mellitus with diabetic chronic kidney disease; K21.9 Gastro-esophageal reflux disease without esophagitis; N18.30 Chronic kidney disease, stage 3 unspecified; E83.51 Hypocalcemia; E87.6 Hypokalemia; Z96.651 Presence of right artificial knee joint; I27.20 Pulmonary hypertension, unspecified; I34.0 Nonrheumatic mitral (valve) insufficiency; D50.9 Iron deficiency anemia, unspecified; I48.91 Unspecified atrial fibrillation; E11.65 Type 2 diabetes mellitus with hyperglycemia; E83.42 Hypomagnesemia; R13.12 Dysphagia, oropharyngeal phase; Z88.1 Allergy status to other antibiotic agents; Z79.899 Other long term (current) drug therapy; Z79.84 Long term (current) use of oral hypoglycemic drugs; Z90.89 Acquired absence of other organs; Z90.710 Acquired absence of both cervix and uterus; Z90.49 Acquired absence of other specified parts of digestive tract; Z80.42 Family history of malignant neoplasm of prostate; Z80.51 Family history of malignant neoplasm of kidney; Z88.8 Allergy status to other drugs, medicaments and biological substances; Z68.23 Body mass index [BMI] 23.0-23.9, adult
CPT/HCPCS: 36415; 36416; 51701; 70450; 70496; 70498; 70551; 71045; 72070; 72100; 80048; 80053; 80202; 80306; 80307; 81001; 81003; 81015; 82248; 82306; 82310; 83605; 83615; 83735; 83930; 83935; 83970; 84100; 84484; 84550; 85025; 85379; 85610; 85730; 86304; 87040; 87086; 93005; 93010; 93306; 93970; 94760; 95816; 95819; 95957; 96365; 96367; 96368; 96375; 96376; G0378; J0282; J0610; J0611; J0692; J0696; J1642; J1650; J1815; J1940; J1953; J2060; J2405; J3370; J3370-JW; J3475; J3480; J3490; J7030; J7050; J7070; J7120; Q9967

== ENCOUNTER 2022-07-30 14:58 | Emergency (ER) | payer MEDICARE ==
[2022-07-30 15:33] LABS: Bacteria/HPF 4+ HPF (None Seen); Bilirubin Negative (Negative); Blood, Urine 1+ (Negative); Clarity Extra Turbid (Clear); Glucose, Urine (Dipstick) 100 mg/dL (Negative); Ketone, Urine Negative (Negative); Leukocyte 500 Leu/uL (Negative); Nitrite Negative (Negative); Protein, Urine (Dipstick) Greater than 600 mg/dL (Neg-Trace); Specific Gravity, Urine 1.027 (1.002-1.036); Squamous Epithelial None Seen HPF (0-3); Urobilinogen Normal mg/dL (Less than 2); WBC/HPF Greater than 50 HPF (0-3)
[2022-07-30 15:57] LABS: #Basophils 0.1 thou/uL (0.0-0.2); #Lymphocytes 2.8 thou/uL (1.20-3.40); #Monocytes 0.5 thou/uL (0.11-0.59); #Neutrophils 5.7 thou/uL (1.40-6.50); %Basophils 1.5 % (0.0-1.0); %Eosinophils 0.5 % (0.0-10.0); %Lymphocytes 30.6 % (21.0-51.0); %Monocytes 5.9 % (0.0-10.0); %Neutrophils 61.5 % (42.0-75.0); Hemoglobin 11.9 g/dL (12.0-16.0); Mean Corpuscular HGB CONC 32.3 g/dL (32.0-36.0); Mean Corpuscular Hemoglobin 29.9 pg (27.0-31.0); Mean Corpuscular Volume 92.5 fl (78.0-98.0); Mean Platelet Volume 7.1 fL (7.4-10.4); Platelet Count 258 10x3/uL (130-400); RBC Distribution Width 17.6 % (11.5-14.5); Red Blood Cell (RBC) Count 3.97 mill/uL (4.20-5.40); White Blood Cell (WBC) Count 9.2 10x3/uL (4.8-10.8)
[2022-07-30 16:17] LABS: ALT (SGPT) 9 U/L (8-55); AST (SGOT) 14 U/L (5-34); Albumin 3.1 g/dL (3.4-4.8); Alkaline Phosphatase 86 U/L (40-110); Anion Gap 14 mmol/L (10-20); BUN (Urea Nitrogen) 24 mg/dL (9.8-20.1); Bilirubin, Total 0.3 mg/dL (0.2-1.2); Calc. Creatinine Clearance 0 mL/min (70-130); Calcium 9.1 mg/dL (7.8-10.44); Carbon Dioxide 23 mmol/L (23-31); Chloride 102 mmol/L (98-107); Estimated GFR 57; Globulin 3.4 g/dL (2.4-3.5); Glucose 210 mg/dL (83-110); Lipase 8 U/L (8-78); Protein, Total 6.5 g/dL (5.8-8.1); Sodium 135 mmol/L (136-145)
[2022-07-30] MEDS ORDERED: fentaNYL 50 mcg/mL 1 mL Vial ONE (18:39)
== END 2022-07-30 19:42 ==
LOC: ERS 14:58
DX: K56.41 Fecal impaction (principal); E11.9 Type 2 diabetes mellitus without complications; K21.9 Gastro-esophageal reflux disease without esophagitis; I10 Essential (primary) hypertension; Z79.899 Other long term (current) drug therapy
CPT/HCPCS: 70450; 71045; 74177; 80053; 82962; 83605; 83690; 84484; 85025; 87040; 87086; 93005; J3010; 36415; 36416; 81003; 81015; 96374

== ENCOUNTER 2022-08-01 00:27 | Inpatient (IN) | payer MEDICARE ==
[2022-08-01 01:29] LABS: #Basophils 0.1 thou/uL (0.0-0.2); #Lymphocytes 2.7 thou/uL (1.20-3.40); #Monocytes 0.6 thou/uL (0.11-0.59); #Neutrophils 5.3 thou/uL (1.40-6.50); %Basophils 0.6 % (0.0-1.0); %Eosinophils 0.6 % (0.0-10.0); %Lymphocytes 31.3 % (21.0-51.0); %Monocytes 6.6 % (0.0-10.0); Hemoglobin 11.3 g/dL (12.0-16.0); Mean Corpuscular HGB CONC 31.9 g/dL (32.0-36.0); Mean Platelet Volume 6.8 fL (7.4-10.4); Platelet Count 251 10x3/uL (130-400); RBC Distribution Width 17.1 % (11.5-14.5); Red Blood Cell (RBC) Count 3.77 mill/uL (4.20-5.40); White Blood Cell (WBC) Count 8.7 10x3/uL (4.8-10.8)
[2022-08-01 01:52] LABS: Bilirubin Negative (Negative); Blood, Urine 2+ (Negative); Clarity Extra Turbid (Clear); Glucose, Urine (Dipstick) Normal (Negative); Ketone, Urine 20 mg/dL (Negative); Leukocyte 500 Leu/uL (Negative); Nitrite Negative (Negative); Protein, Urine (Dipstick) 300 mg/dL (Neg-Trace); RBC/HPF Greater than 50 HPF (0-3); Specific Gravity, Urine 1.032 (1.002-1.036); Squamous Epithelial 0-3 HPF (0-3); Urobilinogen Normal mg/dL (Less than 2); WBC/HPF Greater than 50 HPF (0-3); pH, Urine 8.5 (5.0-9.0)
[2022-08-01 01:53] LABS: ALT (SGPT) 7 U/L (8-55); AST (SGOT) 6 U/L (5-34); Alkaline Phosphatase 83 U/L (40-110); Anion Gap 12 mmol/L (10-20); BUN (Urea Nitrogen) 32 mg/dL (9.8-20.1); Bilirubin, Total 0.5 mg/dL (0.2-1.2); Calc. Creatinine Clearance 0 mL/min (70-130); Calcium 9.1 mg/dL (7.8-10.44); Carbon Dioxide 25 mmol/L (23-31); Chloride 102 mmol/L (98-107); Estimated GFR 57; Globulin 3.3 g/dL (2.4-3.5); Glucose 144 mg/dL (83-110); Lipase 11 U/L (8-78); Potassium 3.9 mmol/L (3.5-5.1); Protein, Total 6.3 g/dL (5.8-8.1); Sodium 135 mmol/L (136-145)
[2022-08-01 02:09] LABS: Bacteria/HPF 4+ HPF (None Seen); Triple Phosphate Crystal 3+ HPF (None Seen)
[2022-08-01] MEDS ORDERED: cefTRIAXone (ROCEPHIN) 2 GM VIAL ONE (03:54)
[2022-08-01 04:06] LABS: Free T4 (Free Thyroxine) 1.43 ng/dL (0.70-1.48)
[2022-08-01] MEDS ORDERED: fentaNYL 50 mcg/mL 1 mL Vial ONE (04:28)
[2022-08-01 08:13] VITALS: BMI 21.1
[2022-08-01] MEDS ORDERED: Sodium Chloride 0.9% 1,000 ML IV SCH (08:15)
[2022-08-01] MEDS ORDERED: Ondansetron PF 4 MG/2 ML Vial IVP PRN (08:15)
[2022-08-01] MEDS ORDERED: Acetaminophen 325 MG TAB PO PRN (08:15)
[2022-08-01] MEDS ORDERED: Ondansetron ODT 4 MG TAB SL PRN (08:15)
[2022-08-01] MEDS ORDERED: Dextrose 50% Abboject 50 ML SYRINGE SLOW IVP PRN (08:36)
[2022-08-01] MEDS ORDERED: Dextrose 5% in Water 1,000 ML IV PRN (08:36)
[2022-08-01] MEDS: Lactated Ringer's 1,000 ML IV SCH ×2 (09:08→22:02)
[2022-08-01] MEDS: Famotidine/PF 20 mg/2ml Vial SLOW IVP SCH ×2 (09:11→20:59)
[2022-08-01] MEDS: Morphine 2 MG/ML VIAL SLOW IVP PRN (11:33)
[2022-08-01] MEDS ORDERED: Iopamidol-370 76% 500 ML MDV (1 ML CHARGE) ONE (11:43)
[2022-08-01] MEDS: Labetalol HCl 100 MG/20 ML VIAL SLOW IVP PRN (17:58)
[2022-08-01] MEDS ORDERED: diphenhydrAMINE 50 MG/ML VIAL IVP SCH (20:00)
[2022-08-01] MEDS ORDERED: hydrALAZINE 20 MG/ML VIAL SLOW IVP SCH (20:00)
[2022-08-02 06:11] LABS: #Lymphocytes 2.7 thou/uL (1.20-3.40); #Monocytes 0.4 thou/uL (0.11-0.59); #Neutrophils 4.2 thou/uL (1.40-6.50); %Basophils 0.1 % (0.0-1.0); %Eosinophils 0.7 % (0.0-10.0); %Lymphocytes 36.9 % (21.0-51.0); %Monocytes 5.9 % (0.0-10.0); %Neutrophils 56.5 % (42.0-75.0); Hemoglobin 10.6 g/dL (12.0-16.0); Mean Corpuscular HGB CONC 33.9 g/dL (32.0-36.0); Mean Corpuscular Hemoglobin 31.7 pg (27.0-31.0); Mean Corpuscular Volume 93.5 fl (78.0-98.0); Mean Platelet Volume 6.9 fL (7.4-10.4); Platelet Count 247 10x3/uL (130-400); RBC Distribution Width 16.6 % (11.5-14.5); Red Blood Cell (RBC) Count 3.35 mill/uL (4.20-5.40); White Blood Cell (WBC) Count 7.4 10x3/uL (4.8-10.8)
[2022-08-02 06:39] LABS: Anion Gap 14 mmol/L (10-20); BUN (Urea Nitrogen) 18 mg/dL (9.8-20.1); Calc. Creatinine Clearance 58 mL/min (70-130); Calcium 8.2 mg/dL (7.8-10.44); Carbon Dioxide 20 mmol/L (23-31); Chloride 103 mmol/L (98-107); Estimated GFR 85; Glucose 129 mg/dL (83-110); Potassium 3.3 mmol/L (3.5-5.1); Sodium 134 mmol/L (136-145)
[2022-08-02] MEDS ORDERED: Preparation H Suppository PR PRN (07:31)
[2022-08-02] MEDS: cefTRIAXone\\ROCEPHIN 1 GM in Sodium Chloride 0.9% 100 ML IVPB SCH (08:38)
[2022-08-02] MEDS: Famotidine/PF 20 mg/2ml Vial SLOW IVP SCH ×2 (08:38→20:16)
[2022-08-02] MEDS: Morphine 2 MG/ML VIAL SLOW IVP PRN ×4 (09:11→17:11)
[2022-08-02] MEDS ORDERED: HYDROcodone/Acetaminophen 5/325 mg Tablet PO PRN (10:21)
[2022-08-02] MEDS ORDERED: Polyethylene Glycol 3350 17 GM Packet PO PRN (10:24)
[2022-08-02] MEDS ORDERED: Potassium Chloride 40 MEQ in Premix Bag 1 BAG IVPB SCH (10:30)
[2022-08-02] MEDS: Potassium Chloride 20 MEQ in Premix Bag 1 BAG IVPB SCH ×2 (11:29→13:18)
[2022-08-02] MEDS: Lactated Ringer's 1,000 ML IV SCH (11:30)
[2022-08-02] MEDS: Triamcinolone 0.1% Cream 15 GM TUBE TOP PRN ×2 (17:13→20:01)
[2022-08-02] MEDS ORDERED: Bisacodyl 10 MG SUPP PR SCH (18:15)
[2022-08-02] MEDS ORDERED: GoLYTELY 4,000 ml Bottle PO SCH (18:30)
[2022-08-02] MEDS: Mineral Oil ENEMA PR SCH ×4 (18:34→22:33)
[2022-08-02] MEDS: Ketorolac Tromethamine 30 MG/ML VIAL IVP PRN (20:16)
[2022-08-03] MEDS: Mineral Oil ENEMA PR SCH ×19 (00:14→22:28)
[2022-08-03] MEDS: Lactated Ringer's 1,000 ML IV SCH ×2 (00:41→12:37)
[2022-08-03 06:05] LABS: #Eosinphils 0.1 thou/uL (0.0-0.7); #Lymphocytes 2.5 thou/uL (1.20-3.40); #Monocytes 0.4 thou/uL (0.11-0.59); %Basophils 0.1 % (0.0-1.0); %Lymphocytes 42.4 % (21.0-51.0); %Monocytes 7.2 % (0.0-10.0); %Neutrophils 49.4 % (42.0-75.0); Mean Corpuscular HGB CONC 34.1 g/dL (32.0-36.0); Mean Corpuscular Hemoglobin 31.7 pg (27.0-31.0); Mean Corpuscular Volume 92.8 fl (78.0-98.0); Mean Platelet Volume 6.7 fL (7.4-10.4); Platelet Count 256 10x3/uL (130-400); RBC Distribution Width 16.3 % (11.5-14.5); Red Blood Cell (RBC) Count 3.47 mill/uL (4.20-5.40)
[2022-08-03 06:21] LABS: Anion Gap 16 mmol/L (10-20); BUN (Urea Nitrogen) 11 mg/dL (9.8-20.1); Calc. Creatinine Clearance 57 mL/min (70-130); Calcium 8.4 mg/dL (7.8-10.44); Carbon Dioxide 19 mmol/L (23-31); Chloride 103 mmol/L (98-107); Estimated GFR 83; Glucose 142 mg/dL (83-110); Magnesium 1.4 mg/dL (1.6-2.6); Potassium 3.6 mmol/L (3.5-5.1); Sodium 134 mmol/L (136-145)
[2022-08-03] MEDS: Bisacodyl 10 MG SUPP PR SCH ×3 (07:05→22:26)
[2022-08-03] MEDS: cefTRIAXone\\ROCEPHIN 1 GM in Sodium Chloride 0.9% 100 ML IVPB SCH (09:35)
[2022-08-03] MEDS: Famotidine/PF 20 mg/2ml Vial SLOW IVP SCH ×2 (09:36→21:48)
[2022-08-03] MEDS: Ketorolac Tromethamine 30 MG/ML VIAL IVP PRN ×3 (11:01→22:20)
[2022-08-03] MEDS: Morphine 2 MG/ML VIAL SLOW IVP PRN (12:36)
[2022-08-03] MEDS: Insulin Regular 300 UNITS/3 ML VIAL SC PRN (13:24)
[2022-08-03] MEDS: Gabapentin 300 MG CAP PO SCH (21:48)
[2022-08-03] MEDS: Triamcinolone 0.1% Cream 15 GM TUBE TOP PRN (21:54)
[2022-08-03] MEDS: Labetalol HCl 100 MG/20 ML VIAL SLOW IVP PRN (22:18)
[2022-08-04] MEDS: Mineral Oil ENEMA PR SCH ×12 (00:37→19:29)
[2022-08-04] MEDS: Lactated Ringer's 1,000 ML IV SCH (03:21)
[2022-08-04] MEDS: Bisacodyl 10 MG SUPP PR SCH ×2 (06:39→15:15)
[2022-08-04] MEDS: cefTRIAXone\\ROCEPHIN 1 GM in Sodium Chloride 0.9% 100 ML IVPB SCH (11:52)
[2022-08-04] MEDS: Famotidine/PF 20 mg/2ml Vial SLOW IVP SCH ×2 (11:57→20:48)
[2022-08-04] MEDS: Gabapentin 300 MG CAP PO SCH ×3 (12:02→20:48)
[2022-08-04] MEDS: Valsartan 80 MG TAB PO SCH ×2 (12:02→20:48)
[2022-08-04] MEDS ORDERED: Dicyclomine 10 MG CAP PO PRN (14:03)
[2022-08-04] MEDS: Carvedilol 6.25 MG TAB PO SCH (19:33)
[2022-08-04] MEDS: Triamcinolone 0.1% Cream 15 GM TUBE TOP PRN (20:47)
[2022-08-04] MEDS: Insulin Regular 300 UNITS/3 ML VIAL SC PRN (20:56)
[2022-08-04] MEDS ORDERED: Mirtazapine 15 MG Soltab PO SCH (21:00)
[2022-08-05] MEDS: Bisacodyl 10 MG SUPP PR SCH ×2 (05:25→06:10)
[2022-08-05 08:18] VITALS: BP 162/70; TEMP 98.7
[2022-08-05] MEDS ORDERED: Losartan 25 MG TAB PO SCH (09:00)
[2022-08-05] MEDS ORDERED: Megestrol Acetate 800 MG/20 ML UDCUP PO SCH (09:00)
[2022-08-05] MEDS: Carvedilol 6.25 MG TAB PO SCH (09:15)
[2022-08-05] MEDS: Famotidine/PF 20 mg/2ml Vial SLOW IVP SCH (09:16)
[2022-08-05] MEDS: cefTRIAXone\\ROCEPHIN 1 GM in Sodium Chloride 0.9% 100 ML IVPB SCH (09:16)
[2022-08-05] MEDS: Gabapentin 300 MG CAP PO SCH (09:16)
[2022-08-05] MEDS: Valsartan 80 MG TAB PO SCH (09:17)
== END 2022-08-05 13:50 | disposition hospice, home (50) | DRG 689 ==
LOC: ERS 00:27 → MSONC 05:33 → OBSVTOIN 09:24
PROVIDERS: ADMIT Internal Medicine; ATTEND Hospitalist
DX: N39.0 Urinary tract infection, site not specified (principal); G93.41 Metabolic encephalopathy; C56.9 Malignant neoplasm of unspecified ovary; K52.9 Noninfective gastroenteritis and colitis, unspecified; Z51.5 Encounter for palliative care; Z66 Do not resuscitate; E11.22 Type 2 diabetes mellitus with diabetic chronic kidney disease; I12.9 Hypertensive chronic kidney disease with stage 1 through stage 4 chronic kidney disease, or unspecified chronic kidney disease; N18.30 Chronic kidney disease, stage 3 unspecified; K21.9 Gastro-esophageal reflux disease without esophagitis; Z96.651 Presence of right artificial knee joint; E89.2 Postprocedural hypoparathyroidism; B96.4 Proteus (mirabilis) (morganii) as the cause of diseases classified elsewhere; E83.42 Hypomagnesemia; K59.00 Constipation, unspecified; F03.90 Unspecified dementia, unspecified severity, without behavioral disturbance, psychotic disturbance, mood disturbance, and anxiety; G40.909 Epilepsy, unspecified, not intractable, without status epilepticus; Z90.710 Acquired absence of both cervix and uterus; Z90.49 Acquired absence of other specified parts of digestive tract; Z88.8 Allergy status to other drugs, medicaments and biological substances; Z88.1 Allergy status to other antibiotic agents; Z79.899 Other long term (current) drug therapy; Z79.4 Long term (current) use of insulin
CPT/HCPCS: 36416; 70450; 71045; 74019; 74177; 80048; 80053; 81003; 81015; 82140; 83605; 83690; 83735; 83880; 84439; 84443; 84481; 84484; 85025; 87077; 87086; 87186; 93005; 96365; 96375; G0378; J0696; J1200; J1642; J1815; J1885; J2272; J3010; J3480; J3490; J7120; Q9967; S0028